=== PATIENT | male | born 1935 | race Caucasian/White ===

== ENCOUNTER 2021-01-19 11:44 | Observation (INO) | payer MEDICARE, BC, SELFPAY ==
[2021-01-19] VITALS (21 sets, daily range): BP systolic 94–138; BP diastolic 54–83; PULSE 56–151; RESP 14–20; TEMP 36.2–36.9; O2SAT 97–100; BMI 22.6
--- NOTE | ~2021-01-19 | XR_ITS ---
EXAMINATION: XR chest 2V EXAM DATE: 01/19/2021 12:41 INDICATION: Shortness of breath. TECHNIQUE: Frontal and lateral projections of the chest obtained and reviewed. Comparison is made to prior examination from 06/27/2012, 11/24/2010. FINDINGS: Linear left opacities appearance most consistent with scarring, appear unchanged compared t o 2010. No evidence of superimposed acute airspace disease. No pneumothorax or pleural effusion. Card iomediastinal silhouette is normal. There is aortic arteriosclerosis. Mild thoracic spondylosis. IMPRESSION: Chronic left basilar linear scarring. Reviewed, dictated and finalized at location A.
--- NOTE | 2021-01-19 11:57 | ED.CHESTPAIN ---
HPI - Chest Pain General Chief Complaint: Chest Pain Stated Complaint: CP, from Dr Epperson office Time Seen by Provider: 01/19/21 11:57 Source: patient Mode of arrival: ambulatory Limitations: no limitations History of Present Illness HPI narrative: Patient is an 85-year-old male with a history of hypertension who presents for evaluation of rapid heart rate. Patient was at a routine primary care physician appointment when he was noted to have a heart rate in the 150s. Patient does not have any history of atrial fibrillation. He is not anticoagulated. He denies any chest pain or palpitations. He just reports general malaise and feeling unwell over the past several days. He denies recent illness. No fever or chills. No other medication changes. He is reporting mild shortness of breath, no shortness of breath currently. Related Data Home Medications Medication Instructions Recorded Confirmed aspirin 81 mg PO DAILY 01/19/21 01/19/21 Allergies Allergy/AdvReac Type Severity Reaction Status Date / Time No Known Allergies Allergy Mild Verified 01/19/21 12:00 Review of Systems Review of Systems: Narrative: CONSTITUTIONAL: Denies fever, chills, or sweats. ENT: Denies rhinorrhea, congestion, sore throat, or otalgia. CARDIOVASCULAR: Denies chest pain, palpitations, or edema. RESPIRATORY: Denies cough, reports mild dyspnea, none currently GASTROINTESTINAL: Denies abdominal pain, nausea, vomiting, or diarrhea. GENITOURINARY: Denies dysuria or hematuria. SKIN: Denies rash MUSCULOSKELETAL: Denies back pain NEUROLOGIC: Denies headache PMFSH Past Medical History Medical History Chronic kidney disease, stage 3 Baseline creatinine ranges between 1.3 and 1.50. Diverticulosis (~02/2016) Noted on colonoscopy per Dr. Gonzalez Gastroesophageal reflux disease Hearing loss Hypertension Pure hypercholesterolemia Surgical History Surgical History History of left inguinal hernia repair Family History Family History Father Family history of lung cancer Social History Social History Social History: Surrogate decision maker: Code status: Smoking packs per day: 1 Smoking cigarettes per day: 20.0 Years smoked: 3 Smoking pack-years: 3.00 Smoking status: Former smoker Tobacco type: cigarettes Second hand tobacco smoke exposure: No Smoking end date: 10/16/1955 Alcohol intake: never Substance use: never Substance use type: does not use Additional living arrangements comments: The patient lives in [place]. Gender identity (if verbalized by the patient): Male Spiritual care concerns: No Exam Narrative: Exam Narrative: GENERAL: Awake, alert, conversant HEAD: Normocephalic, atraumatic. EYES: PERRLA and EOMI. ENT: Nares clear, no rhinorrhea or epistaxis. Mucous membranes moist. NECK: Supple. CHEST: No respiratory distress, breathing even and non labored HEART: Tachycardic rate, irregular rhythm ABDOMEN:Non distended, non tender EXTREMITIES: Normal range of motion. No edema. SKIN: Warm, dry, no rash. NEURO:No focal deficits. Alert and oriented x3 Course Vital Signs Vital signs: Vital Signs Temperature 36.9 C 01/19/21 11:50 Pulse Rate 151 H 01/19/21 11:50 Respiratory Rate 18 01/19/21 11:50 Blood Pressure 99/78 L 01/19/21 11:50 Pulse Oximetry 98 01/19/21 11:50 Temperature 36.2 C L 01/19/21 17:35 Pulse Rate 136 H 01/19/21 17:35 Respiratory Rate 14 01/19/21 17:35 Blood Pressure 109/62 01/19/21 17:35 Pulse Oximetry 100 01/19/21 17:35 MDM - Chest Pain MDM Narrative Medical decision making narrative: Patient presented for evaluation of rapid heart rate found at a primary care physician's office today. The time of assessment, patient is in
--- NOTE | 2021-01-19 12:01 | ECG_ITS ---
Measurements Intervals [place] Rate: 131 P: [place]: 0 QRS: -13 QRSD: 74 T: 39 QT: 290 QTc: 428 Interpretive Statements ATRIAL FIBRILLATION WITH RAPID VENTRICULAR RESPONSE EARLY PRECORDIAL R/S TRANSITION BASELINE ARTIFACT- I, III, AVR, AVL, AVF ABNORMAL ECG Electronically Signed On 01-19-2021 12:45:24 CDT by Jeevan Wheatley D.O.
[2021-01-19] MEDS: ASPIRIN 81 MG CHEWABLE TABLET 324 MG PO (12:16)
[2021-01-19 12:32] LABS: Basophils Absolute Auto 0.1 K/mm3 (0.0-0.1); Basophils Percent Auto 1.1 % (0.2-1.2); Eosinophils Absolute Auto 0.2 K/mm3 (0-0.3); Eosinophils Percent Auto 2.3 % (0-4.4); Hematocrit 45.3 % (42.0-52.0); Hemoglobin 15.3 g/dL (14.0-18.0); Immature Granulocyte Absolute 0.03 K/mm3 (0.00-0.031); Immature Granulocyte Percent A 0.3 % (0-0.5); Lymphocytes Percent Auto 28.3 % (18.3-44.2); Mean Corpuscular HGB Conc 33.8 g/dl (32-36); Mean Corpuscular Hemoglobin 30.3 pg (26-34); Mean Corpuscular Volume 89.7 fl (80-100); Mean Platelet Volume 9.8 fl (7.4-10.4); Monocytes Absolute Auto 0.7 K/mm3 (0.1-0.6); Monocytes Percent Auto 7.9 % (2.6-8.5); Neutrophils Absolute Auto 5.5 K/mm3 (1.3-6.7); Neutrophils Percent Auto 60.1 % (45.5-73.1); Platelet Count Result 230 k/mm3 (150-375); Red Blood Count 5.05 M/mm3 (4.6-6.20); Red Cell Distribution Width 13.1 % (11.5-14.5); White Blood Count 9.2 K/mm3 (4.5-10.0)
[2021-01-19 12:41] LABS: INR 0.9; Prothrombin Time 12.7 Seconds (11.1-14.7)
[2021-01-19 12:42] LABS: Partial Thromboplastin Time 29.7 SECONDS (22.3-36.8)
[2021-01-19 12:54] LABS: Anion Gap 4 mmol/L (8-16); Blood Urea Nitrogen 20 mg/dL (9-20); Calcium 8.5 mg/dL (8.4-10.2); Carbon Dioxide 31 mmol/L (22-30); Chloride 107 mmol/L (98-107); Estimated CRCL calculation 35 ml/min; Estimated Glomerular Filt Rate 45; Glucose 105 mg/dL (75-110); Potassium 3.9 mmol/L (3.4-5.0); Sodium 142 mmol/L (137-145); Troponin I < 0.012 ng/mL (0.000-0.034)
[2021-01-19] MEDS: METOPROLOL TARTRATE INJ 5 MG/5 ML VIAL IV PUSH (13:00)
[2021-01-19] MEDS: ENOXAPARIN 80 MG/0.8 ML SYRINGE 75 MG SUB-Q ×2 (13:15→21:35)
--- NOTE | 2021-01-19 15:07 | PC.NURSE ---
Pt given food tray.
--- NOTE | 2021-01-19 15:30 | PM.IMHP ---
H&P: HPI History of Present Illness Date/Time: 01/19/21 15:30 Chief Complaint: Atrial fibrillation. Narrative: This is an 85-year-old male with hypertension, hypercholesterolemia, GERD, and chronic kidney disease stage 3 who presented to the emergency department earlier today from Dr. Bauer office for evaluation after he was found to be in atrial fibrillation. He had a routine appointment with Dr. Bauer today and mentioned that he did not sleep well last night and was fatigued today with perhaps some mild shortness of breath. He was found to be in atrial fibrillation with rapid ventricular response, which is a new diagnosis for him, and he was directed to the emergency department. He received 5 milligrams of IV Lopressor and has has since been started on a Cardizem drip with some improvement in his rate although his blood pressures have been on the lower side. He has had similar symptoms in the past, quite sometime ago and on very rare occasions where he has felt ?punk? like this but has never been aware of or diagnosed with atrial fibrillation. He drinks at least 30 ounces of soda a day. Rare alcohol use. He denies symptoms of or concerns for sleep apnea. No exertional chest pain but occasional dyspnea on exertion. No history of thyroid disease. Review of Systems Review of Systems: Narrative: Twelve systems were reviewed with pertinent positives and negatives as per HPI. No fever, chills, or sweats. He denies recent cold and flu symptoms. No exposure to those positive for COVID-19. Denies nausea and vomiting. No diarrhea. No dysuria. Except as documented, all other systems were reviewed and are negative. [facility] Past Medical History Medical History Chronic kidney disease, stage 3 Baseline creatinine ranges between 1.3 and 1.50. Diverticulosis (~02/2016) Noted on colonoscopy per Dr. Gonzalez Gastroesophageal reflux disease Hearing loss Hypertension Pure hypercholesterolemia Surgical History Surgical History History of left inguinal hernia repair Family History Family History Father Family history of lung cancer Social History Social History (Updated 01/20/21 @ 01:12 by Eli Clifton PA-C) Social History: Surrogate decision maker: Estuardo Bustillos, child. Code status: Full code. Smoking packs per day: 1 Smoking cigarettes per day: 20.0 Years smoked: 3 Smoking pack-years: 3.00 Smoking status: Former smoker Tobacco type: cigarettes Second hand tobacco smoke exposure: No Smoking end date: 10/16/1956 Alcohol intake: never Substance use: never Substance use type: does not use Additional living arrangements comments: The patient is and lives in [place]. Originally from [facility]. Additional occupation/education comments: Retired. Gender identity (if verbalized by the patient): Male Spiritual care concerns: No Meds Home Medications and Allergies Home Medications Medication Instructions Recorded Confirmed Type metoprolol succinate 100 mg 100 mg PO DAILY #90 tablet 08/17/20 01/19/21 Rx tablet,extended release 24 hr omeprazole 40 mg capsule,delayed 40 mg PO DAILY #90 cap 08/18/20 01/19/21 Rx release valsartan 320 mg tablet 320 mg PO DAILY #90 tablet 09/14/20 01/19/21 Rx lovastatin 40 mg tablet 40 mg PO DAILY #30 tablet 12/03/20 01/19/21 Rx aspirin 81 mg PO DAILY 01/19/21 01/19/21 History Allergies Allergy/AdvReac Type Severity Reaction Status Date / Time No Known Allergies Allergy Mild Verified 01/19/21 12:00 Vital Signs Vital Signs - 24 hr 01/19/21 11:50 01/19/21 11:59 01/19/21 12:22 Temperature 98.4 F Pulse Rate 151 H 133 H 136 H Respiratory Rate 18 20 Blood Pressure 99/78 L 138/83 Pulse Oximetry 98 99 01/19/21 13:00 01/19/21 13:14 01/19/21 13:15
[2021-01-19 16:25] LABS: Troponin I < 0.012 ng/mL (0.000-0.034)
--- NOTE | 2021-01-19 16:45 | PC.NURSE ---
Spoke with Dr. Dawson regarding patients rate/rhythm change. Pt is currently rate [address] Dawson would like to continue IV drip at this time.
--- NOTE | 2021-01-19 17:44 | ADMGEN ---
This patient, Rai Bustillos, was admitted to IMU Room 200-01. Patient/family oriented to hospital policies and general routines including ID bracelet, bed and alarms, visiting hours, pain management, procedures, bathroom and other care routines, personal items, smoking policy, room service/diet, and visiting hours. Information on how to activate the Rapid Response Team has been discussed. Patient/Family are encouraged to report perceived risks to care and to ask questions if they do not understand what they are told or what they should do.
[2021-01-19 18:55] LABS: Troponin I < 0.012 ng/mL (0.000-0.034)
[2021-01-20] VITALS (10 sets, daily range): BP systolic 111–112; BP diastolic 58–65; PULSE 55–65; RESP 12–18; TEMP 36.1–36.5; O2SAT 97–99
[2021-01-20 05:22] LABS: Alanine Aminotransferase 10 U/L (4-50); Albumin Level 3.1 g/dL (3.5-5.1); Alkaline Phosphatase 87 U/L (38-126); Anion Gap 2 mmol/L (8-16); Aspartate Amino Transferase 22 U/L (17-59); Bilirubin,Total 0.7 mg/dL (0.2-1.3); Blood Urea Nitrogen 22 mg/dL (9-20); Calcium 7.9 mg/dL (8.4-10.2); Carbon Dioxide 32 mmol/L (22-30); Chloride 108 mmol/L (98-107); Estimated CRCL calculation 39 ml/min; Estimated Glomerular Filt Rate 53; Glucose 87 mg/dL (75-110); Magnesium 1.7 mg/dL (1.6-2.3); Potassium 4.1 mmol/L (3.4-5.0); Sodium 142 mmol/L (137-145)
--- NOTE | 2021-01-20 05:36 | PCRCNOTE ---
Patient refused apnea link last night (01/19/21) Procedure was thoroughly explained to pt in which he proceeded to decline.
[2021-01-20] MEDS: ASPIRIN 81 MG CHEWABLE TABLET PO (08:41)
[2021-01-20] MEDS: LOVASTATIN 20 MG TABLET 40 MG PO (08:41)
[2021-01-20] MEDS: PANTOPRAZOLE 40 MG TABLET PO (08:41)
[2021-01-20] MEDS: METOPROLOL SUCCINATE EXT REL 100 MG TABCR PO (08:41)
[2021-01-20] MEDS: ENOXAPARIN 80 MG/0.8 ML SYRINGE 75 MG SUB-Q (08:41)
--- NOTE | 2021-01-20 11:28 | PM.CNCAR ---
Assessment and Plan Assessment and plan (1) Atrial fibrillation with RVR: Code(s): I48.91 - Unspecified atrial fibrillation Status: Acute Assessment and Plan: Symptomatic with reduced energy, minimal shortness of breath but no chest pain or palpitations. Converted to sinus rhythm and maintained thus far. Symptoms resolved. Increase Toprol XL to 125 mg daily. Follow up with Dr. Deshpande as outpatient 4 weeks. CHADS2 Vasc score 3. Systemic anticoagulation advised. Discussed risk versus benefit of embolic stroke risk reduction with atrial fibrillation and associated pathology as well as bleeding risk. Bleeding risks include GI, , cerebral hemorrhage under local trauma related issues. Patient verbalized understanding and agreed with plan of care. All questions answered to his satisfaction. If head injury, falls or bleeding present to ER immediately. Patient understood this concern. Avoid NSAIDs due to bleeding risk. Discontinue aspirin at discharge. Patient stable for discharge home to follow up as scheduled as an outpatient. Will initiate Xarelto 15 mg at bedtime renally dosed. Continue additional medical therapy with these changes noted. (2) Hypertension: Code(s): I10 - Essential (primary) hypertension Status: Acute Assessment and Plan: Stable, no acute issues. Continue current medical therapy. (3) Gastro-esophageal reflux disease without esophagitis: Code(s): K21.9 - Gastro-esophageal reflux disease without esophagitis Status: Acute Assessment and Plan: Stable, no acute issues. No direct contraindications. (4) Chronic kidney disease, stage 3: Code(s): N18.30 - Chronic kidney disease, stage 3 unspecified Status: Acute Assessment and Plan: Stable. Xarelto dosing as above 15 mg at bedtime. History of Present Illness History of Present Illness Consult date/time: date of service: 01/20/21 11:29 Cardiology consultation at the request of MAT Philippe for our opinion regarding atrial fibrillation with RVR. Requesting physician: Eli Clifton PA-C Consult reason: atrial fibrillation Reason For Visit: A fib with RVR Narrative: With a history of hypertension, dyslipidemia, GERD, chronic kidney disease stage [address] Deshpande as an outpatient found to be in new onset atrial fibrillation with rapid ventricular response after presenting to his primary care physician's office for routine visit. He does not he has been feeling punky that day but otherwise denies palpitations, chest pain or dizziness. He admitted to feeling perhaps very mildly short of breath and did not sleep well the night before. In the emergency department he received IV metoprolol with started on a Cardizem drip with eventual conversion to sinus rhythm. This was discontinued and he has been maintained on his home Toprol XL 100 mg daily. He has no complaints and feels notably improved this morning. Troponins negative serially. 2D echocardiogram fairly unremarkable with normal LV function and no significant valve pathology. Patient denies lower extremity edema, orthopnea or PND. He denies new or recent limitations, falls, head injury, fevers, chills, recent illnesses or sick contacts. Medications unchanged. Review of Systems Review of Systems: All systems reviewed & are unremarkable except as noted in HPI and below Constitutional: Constitutional: Reports as per HPI, Reports no additional constitutional complaints, Reports fatigue and Reports weakness Eyes: Eyes: Reports as per HPI and Reports no additional eye complaints ENT: Reports system reviewed and no additional complaints, except as documented and Reports as per HPI Cardiovascular: Cardiovascular: Reports as per HPI, Reports no additional cardiovascular complaints, Denies chest pain, Denies diaphoresis, Reports lightheadedness and Denies palpitations Respiratory: Respiratory: Reports as per HPI, Reports no carlos
--- NOTE | 2021-01-20 13:14 | PM.IMPN ---
Progress Note: A&P Assessment and Plan (1) Atrial fibrillation with RVR: Code(s): I48.91 - Unspecified atrial fibrillation Status: Acute Assessment and Plan: This is a new diagnosis for the patient, uncertain as to how long he has been in this rhythm. Currently on a Cardizem drip with improvement in rates.-> discontinued CHADS2 Vasc score is 2, will start Lovenox 1 milligram/kilogram b.i.d. for now. He seems are uncertain about anticoagulation. Echocardiogram has been ordered. TSH normal. 01/20/21 Patient was without complaint during my interview. Pending further evaluation of his new onset atrial fibrillation. Currently heart rate is the 60s. Anticipate discharge home after completion of workup. cont current care (2) Hypertension: Code(s): I10 - Essential (primary) hypertension Status: Acute Assessment and Plan: Blood pressures reviewed and they have been on the lower side of normal on a Cardizem drip. Hold valsartan while on Cardizem drip. Continue to monitor blood pressures closely. (3) Chronic kidney disease, stage 3: Code(s): N18.30 - Chronic kidney disease, stage 3 unspecified Status: Acute Assessment and Plan: Creatinine is stable on review of previous labs. (4) Pure hypercholesterolemia: Code(s): E78.00 - Pure hypercholesterolemia, unspecified Status: Acute Assessment and Plan: Continue statin and check LFTs. (5) Gastroesophageal reflux disease: Code(s): K21.9 - Gastro-esophageal reflux disease without esophagitis Status: Acute Assessment and Plan: Continue PPI. Subjective Date/time seen: 01/20/21 13:14 Patient has no complaints at time of interview his heart rate is in the 60s. He is requesting to go home. Patient advised that we should continue further workup is newly diagnosed atrial fibrillation to ensure there are no correctable causes. Echocardiogram pending will defer to cardiology elective stay and timing of discharge. Exam Narrative: Exam Narrative: General: no distress. Cooperative to interview, on room air HEENT: Wearing glasses. PERRL, EOMI. Sclerae anicteric. Oral mucosa moist. Oropharynx clear. Neck: Supple. No JVD. Respiratory: Lungs are clear to auscultation bilaterally. Cardiovascular: Irregular rate and rhythm with S1-S2. rate controlled AFib. Gastrointestinal: Abdomen is soft, nontender, and nondistended with positive bowel sounds. Skin: Warm and dry. No rash or lesions on limited exam. Extremities: No cyanosis, clubbing, or edema. Radial and pedal pulses intact. Neurological: AAOx3 Cranial nerves 2-12 are grossly intact. No gross focal deficits to casual conversation. Psychiatric: Pleasant and cooperative with normal mood and affect. Judgment and insight intact. Objective Data Vital Signs Vital Signs: Vital Signs - 24 hr 01/19/21 13:15 01/19/21 13:45 01/19/21 14:15 Temperature Pulse Rate 130 H 123 H 114 H Respiratory Rate 18 20 Blood Pressure 114/80 95/82 L 98/61 L Pulse Oximetry 99 99 01/19/21 14:45 01/19/21 15:15 01/19/21 16:08 Temperature Pulse Rate 115 H 124 H 119 H Respiratory Rate 16 16 16 Blood Pressure 96/58 L 104/73 98/54 L Pulse Oximetry 97 98 97 01/19/21 16:42 01/19/21 16:45 01/19/21 17:20 Temperature Pulse Rate 60 59 L 61 Respiratory Rate 18 16 20 Blood Pressure 94/54 L 94/54 L 98/58 L Pulse Oximetry 100 100 100 01/19/21 17:35 01/19/21 18:00 01/19/21 19:50 Temperature 97.1 F L 97.6 F Pulse Rate 136 H 58 L 56 L Respiratory Rate 14 18 Blood Pressure 109/62 94/57 L Pulse Oximetry 100 99 01/19/21 20:00 01/19/21 22:00 01/19/21 23:41 Temperature 97.1 F L Pulse Rate 59 L 59 L 64 Respiratory Rate 20 Blood Pressure 111/59 L Pulse Oximetry 99 01/20/21 00:00 01/20/21 02:00 01/20/21 04:00 Temperature 97.0 F L Pulse Rate 55 L 59 L 61 Respiratory Rate 18 Blood Pressure 112/60 Pul
--- NOTE | 2021-01-20 14:18 | PM.DS ---
DS: Admitting Diagnosis Admitting Diagnosis Admitting Diagnosis: new onset afib htn [id number] Hld DS: Discharge Diagnosis Discharge Diagnosis (1) Atrial fibrillation with RVR: Code(s): I48.91 - Unspecified atrial fibrillation Status: Acute (2) Hypertension: Code(s): I10 - Essential (primary) hypertension Status: Acute (3) Pure hypercholesterolemia: Code(s): E78.00 - Pure hypercholesterolemia, unspecified Status: Acute (4) Chronic kidney disease, stage 3: Code(s): N18.30 - Chronic kidney disease, stage 3 unspecified Status: Acute (5) Gastroesophageal reflux disease: Code(s): K21.9 - Gastro-esophageal reflux disease without esophagitis Status: Acute DS: Summary Hospital Course Reason for hospitalization: AFib RVR Hospital Course: 85-year-old male with hypertension hyperlipidemia and CKD 3 admitted in new onset atrial fibrillation. He was treated with Cardizem drip and transition to p.o. metoprolol. Home Alan Vasc score to patient was discharged home on Xarelto. Cardiology was consulted during his hospitalization recommendations appreciated. Status at Discharge Functional status at discharge: independent ambulation Time Spent with Patient Time attestation: Total time spent providing and/or coordinating discharge services: 40min Time spent: Greater than 30 minutes DS: Data Data Completed and Pending Labs on day of discharge: Labs from last 24 hours 01/20/21 01/19/21 01/19/21 03:56 18:14 15:56 Sodium 142 Potassium 4.1 Chloride 108 H Carbon Dioxide 32 H Anion Gap 2 L BUN 22 H Creatinine 1.30 Estim Creat Clear Calc 39 Estimated GFR 53 L Glucose 87 Calcium 7.9 L Magnesium 1.7 Total Bilirubin 0.7 AST 22 ALT 10 Alkaline Phosphatase 87 Troponin I < 0.012 < 0.012 Total Protein 6.0 L Albumin 3.1 L Discharge Plan Discharge Attending physician on discharge: Erika Patiño Consulting providers: Varinder Anders Discharging Clinician: Erika Patiño Anticipated Discharge Date/Time: 01/20/21 14:08 Patient Disposition: Home, Self-Care Activity: as tolerated Diet: as tolerated Discharge Instructions: Follow-up with the [facility] office [address] appointment date and time, provided in 4 weeks. Please arrive 20 minutes prior to your appointment. Bring photo ID, insurance cards, and current medication list. If new to the practice, also bring completed new patient form. Patient Instructions: Antibiotic Form Stand Alone Forms: General Discharge Information Follow-up/Referrals: Varinder Anders MD [Physician] - Keep Reg. Scheduled Appt. (Pt will follow up with Dr. Deshpande in the office.) Verito Deshpande MD [Physician] - 4 Weeks Discharge Medications: New metoprolol succinate [Toprol XL] 100 mg Tablet Extended Release 24 Hr 100 mg PO DAILY Qty: 30 RF: 3 Xarelto 15 mg Tablet 15 mg PO DAILY@1700 Qty: 30 RF: 3 Continued metoprolol succinate 100 mg tablet extended release 24 hr 100 mg PO DAILY Qty: 90 RF: 3 omeprazole 40 mg capsule,delayed release(DR/EC) 40 mg PO DAILY Qty: 90 RF: 3 valsartan 320 mg tablet 320 mg PO DAILY Qty: 90 RF: 1 lovastatin 40 mg tablet 40 mg PO DAILY Qty: 30 RF: 5 Discontinued aspirin 81 mg Tablet 81 mg PO DAILY RF: 0 Date of admission: 01/19/21 12:49 Primary Care Provider: Israel Bauer Admitting Provider: Cira Main Attending physician on admission: Cira Main Condition: Stable Quality VTE Prophylaxis VTE prophylaxis: pharmacologic ordered
--- NOTE | 2021-01-20 16:19 | ECHO_ITS ---
Patient Info Name: Rai Bustillos Age: 85 years : 1935 Gender: Male Ht: 72 in Wt: 166 lbs BSA: 1.95 m2 HR: 61 bpm BP: 112 / 60 mmHg Heart Rhythm: Sinus Rhythm Technical Quality: Good Exam Date: 01/20/2021 7:57 AM Exam Location: [facility] Patient Status: Inpatient Admit Date: 01/19/2021 Staff Ordering Physician: Eli Clifton PA-C Grizzly Worker: Tray Galarza, ADOLPH, RT Attending Provider: Cira Main MD Referring Physician: Elodia CARDOZA; Exam Type: CA echo doppler color flow Study Info Indications I48.1 - Persistent atrial fibrillation I10 - Essential (primary) hypertension Complete two-dimensional, color flow and Doppler transthoracic echocardiogram is performed. Strain analysis performed. Summary 1. Complete two-dimensional, color flow and Doppler transthoracic echocardiogram is performed. 2. Left ventricular systolic function is normal, estimated at 55%. 3. There is mildly increased left ventricular wall thickness. 4. The left ventricular diastolic function is grade I diastolic dysfunction. 5. Left atrial chamber dimension is moderately enlarged. 6. Right atrial chamber dimension is moderately enlarged. 7. There is no aortic valve stenosis. 8. There is mild mitral valve regurgitation. 9. There is mild tricuspid valve regurgitation. 10. Mild pulmonary hypertension, estimated pulmonary arterial systolic pressure is 41 mmHg. Left Ventricle Left ventricular chamber dimension is normal. Left ventricular systolic function is normal, estimated at 55%. There is mildly increased left ventricular wall thickness. The left ventricular diastolic function is grade I diastolic dysfunction. Global longitudinal strain is mildly elevated at -15 %. Right Ventricle Right ventricular chamber dimension is normal. Right ventricular systolic function is normal. Left Atria Left atrial chamber dimension is moderately enlarged. Right Atria Right atrial chamber dimension is moderately enlarged. Aortic Valve The aortic valve is trileaflet. There is mild aortic valve sclerosis. There is no aortic valve stenosis. There is mild aortic valve regurgitation. Pulmonic Valve The pulmonic valve is not well visualized. Mitral Valve The mitral valve has thickened leaflets. There is mild mitral valve regurgitation. The mitral valve annulus is mildly calcified. Tricuspid Valve The tricuspid valve leaflets are normal. There is mild tricuspid valve regurgitation. Mild pulmonary hypertension, estimated pulmonary arterial systolic pressure is 41 mmHg. Pericardium/Pleural The pericardium appears normal. There is no pericardial effusion. Inferior Vena Cava Normal inferior vena cava with no collapse upon inspiration consistent with elevated right atrial pressure, 10 mmHg. Aorta The aortic root size at the sinus of Valsalva is normal. There is mild aortic atherosclerosis. Left Ventricular Outflow Tract Name Value Normal LVOT 2D LVOT Diameter 2.1 cm LVOT Doppler LVOT Peak Gradient 3 mmHg LVOT Mean Gradient 2 mmHg
== END 2021-01-20 15:03 | disposition home or self-care (01) ==
LOC: ANHED 14:14 → ANHIMU 01-20 14:16
PROVIDERS: Physician Assistant; Admitting Provider Family Medicine; Emergency Provider Emergency Medicine; PCP Family Medicine; Visit Provider Hospitalist
DX: I48.91 Unspecified atrial fibrillation (principal); I12.9 Hypertensive chronic kidney disease with stage 1 through stage 4 chronic kidney disease, or unspecified chronic kidney disease; N18.30 Chronic kidney disease, stage 3 unspecified; E78.00 Pure hypercholesterolemia, unspecified; K21.9 Gastro-esophageal reflux disease without esophagitis; I34.0 Nonrheumatic mitral (valve) insufficiency; I36.1 Nonrheumatic tricuspid (valve) insufficiency; I27.20 Pulmonary hypertension, unspecified; Z79.82 Long term (current) use of aspirin; Z87.891 Personal history of nicotine dependence
CPT/HCPCS: 36415; 71046; 80048; 80053; 83735; 84443; 84484; 85025; 85610; 85730; 93005; 93306; 96365; 96366; 96372; 96375; 99285; A9270; G0378; J1650

== ENCOUNTER 2021-02-20 11:08 | Outpatient (CLI) | payer MEDICARE, BC, SELFPAY ==
--- NOTE | ~2021-02-20 | CT_ITS ---
EXAMINATION: CT abdomen pelvis wo/w con DATE: 02/20/2021 12:07 INDICATION: Gross hematuria TECHNIQUE: Computed tomography (CT) of the abdomen and pelvis was performed without and with 130 cc O mnipaque 350 intravenous contrast. The dose-length product was 889.46 mGy-cm. Automated exposure cont rol and iterative reconstruction technique were employed. COMPARISON: None. FINDINGS: There is interlobular septal thickening in the lower lobes and lingula, likely chronic fibr osis. Heart size normal. There is atherosclerosis of the aorta and coronary arteries. There is 7.3 cm liver cyst. The spleen, pancreas, adrenal glands are unremarkable. There is bilateral renal atrophy. There are parapelvic cysts. There is a large stone in the right renal pelvis measuring 1.7 cm. There is mild induration of the parapelvic fat, possibly due to pyelosinus extravasation or infection. The re is gas in the bladder lumen. Bladder wall mildly thickened. Prostate gland is enlarged. Colonic diverticulosis no acute osseous abnormality. Moderate lumbar spondylosis. Nonobstructive chel l gas pattern. No free air or free fluid. Tiny fat-containing umbilical hernia. IMPRESSION: 1. Right renal stone measuring 1.7 cm. Mild induration of the parapelvic fat which may be secondary t o pyelosinus extravasation or infection. 2: Coarse interlobular septal thickening of the lingula and lower lobes, likely chronic fibrosis. 3: Mild bladder wall thickening which may be due to bladder outlet obstruction or cystitis. Small am ount of intraluminal gas in the bladder, likely from recent instrumentation. Correlate clinically. Reviewed, dictated and finalized at location A. IMPRESSION: 1. Right renal stone measuring 1.7 cm. Mild induration of the parapelvic fat wh ich may be secondary to pyelosinus extravasation or infection. 2: Coarse interlobular septal thickening of the lingula and lower lobes, likely chronic fibrosis. 3: Mild bladder wall thickening which may be due to bladder outlet obstruction or cystitis. Small amount of intraluminal gas in the bladder, likely from rece nt instrumentation. Correlate clinically.
--- NOTE | ~2021-02-20 | XR_ITS ---
XR abdomen/kub 1V 02/20/2021 11:26 Indication: Gross hematuria Procedure: KUB Comparison: CT dated 02/20/2021 Findings: There is a calcification in the right upper abdomen measuring 2.2 cm, consistent with renal stone. Bowel gas pattern is nonobstructive. There is atherosclerosis. Moderate lumbar spondylosis. Impression: 1: Right renal stone measuring 2.2 cm. Reviewed, dictated and finalized at location A. Impression: 1: Right renal stone measuring 2.2 cm.
[2021-02-20 11:41] LABS: Estimated Glomerular Filt Rate 44
== END 2021-02-20 11:09 | disposition home or self-care (01) ==
LOC: ANHIMG 11:09
PROVIDERS: PCP Family Medicine; Visit Provider Nurse Practitioner Adult Health
DX: R31.0 Gross hematuria (principal); N20.0 Calculus of kidney
CPT/HCPCS: 74018; 74178; Q9967

== ENCOUNTER 2021-02-26 12:12 | Outpatient (CLI) | payer MEDICARE, BC, SELFPAY ==
--- NOTE | 2021-02-26 11:30 | ECG_ITS ---
Measurements Intervals [place] Rate: 57 P: 3 NE: 164 QRS: -10 QRSD: 82 T: 30 QT: 424 QTc: 416 Interpretive Statements SINUS BRADYCARDIA BASELINE ARTIFACT- I, II, III, AVR, AVL, AVF, V4-V6 BORDERLINE ECG Electronically Signed On 02-26-2021 17:20:35 CDT by Jeevan Wheatley D.O.
[2021-02-26 12:47] LABS: Prothrombin Time 13.4 Seconds (11.1-14.7)
[2021-02-26 12:48] LABS: Partial Thromboplastin Time 28.9 SECONDS (22.3-36.8)
== END 2021-02-26 12:13 | disposition home or self-care (01) ==
LOC: ANHSURGERY 12:17
PROVIDERS: PCP Family Medicine; Visit Provider Urology
DX: I48.91 Unspecified atrial fibrillation (principal); N20.0 Calculus of kidney; Z01.818 Encounter for other preprocedural examination; R94.31 Abnormal electrocardiogram [ECG] [EKG]
CPT/HCPCS: 36415; 85610; 85730; 87086; 93005

== ENCOUNTER → 2021-03-02 04:43 | Outpatient (CLI) | payer MEDICARE, BC, SELFPAY ==
[2021-03-02 20:06] LABS: SARS-CoV-2 RNA PCR Negative
== END ==
PROVIDERS: Physician Assistant; PCP Family Medicine; Visit Provider Urology
DX: Z01.812 Encounter for preprocedural laboratory examination (principal); Z20.822 Contact with and (suspected) exposure to COVID-19
CPT/HCPCS: C9803; U0003; U0005

== ENCOUNTER 2021-03-07 10:08 | Observation (INO) | payer MEDICARE, BC, SELFPAY ==
[2021-02-23 09:23] VITALS: BMI 23.1
--- NOTE | 2021-03-04 12:31 | WPDANESEPPF ---
Anes - Initial Pre Proc Eval Procedure: Operation Date: 03/05/21 11:30 Proposed Procedures p Right Renal Extracorporeal Shock Wave Lithotripsy, - Amor Gonzalez MD s Cystoscopy, Right Stent Placement - Amor Gonzalez MD Date/Time: 03/04/21 12:31 Surgeon: Amor Gonzalez MD Pre Op Diagnosis: right renal stone Patient Data Age: 86 Gender: M Height: 1.83 m Weight: 77.27 kg Allergies Allergy/AdvReac Type Severity Reaction Status Date / Time No Known Allergies Allergy Mild Verified 03/05/21 09:58 Home Medications Medication Instructions Recorded Confirmed Type lovastatin 40 mg tablet 40 mg PO DAILY #30 tablet 12/03/20 03/05/21 Rx aspirin [Aspir-81] 81 mg PO DAILY 02/23/21 03/05/21 History metoprolol succinate 200 mg PO HS 02/23/21 03/05/21 History omeprazole 40 mg PO HS 02/23/21 03/05/21 History valsartan 320 mg PO HS 02/23/21 03/05/21 History ICaps AREDS2 1 cap PO DAILY 03/05/21 03/05/21 History Patient hx anesthesia problems: none Family hx anesthesia problems: none [facility] Past Medical History Medical History (Updated 03/04/21 @ 12:33 by Miguel Woodson DO) A-fib Chronic kidney disease, stage 3 Baseline creatinine ranges between 1.3 and 1.50. Diverticulosis (~02/2016) Noted on colonoscopy per Dr. Gonzalez Gastroesophageal reflux disease Hearing loss Hypertension Pure hypercholesterolemia Surgical History Surgical History History of left inguinal hernia repair Family History Family History Father Family history of lung cancer Social History Social History Social History: Surrogate decision maker: Estuardo Bustillos, child. Code status: Full code. Smoking packs per day: 1 Smoking cigarettes per day: 20.0 Years smoked: 3 Smoking pack-years: 3.00 Smoking status: Former smoker Tobacco type: cigarettes Second hand tobacco smoke exposure: No Smoking end date: 10/16/1955 Alcohol intake: current Drinks per week: 2 Substance use: never Substance use type: does not use Living arrangements: alone Additional living arrangements comments: The patient is and lives in [place]. Originally from [facility]. Additional occupation/education comments: Retired. Gender identity (if verbalized by the patient): Male Spiritual care concerns: No Anes - Eval Final PreProcedure Day of Procedure 03/04/21 12:31 Patient weight: normal Heart: regular rate and rhythm Lungs: clear to auscultation and normal air movement Airway: Mallampati scale class II Neurological: alert and oriented Last oral intake: >/= 8 hours ASA classification: III Emergent: no Anesthetic plan: proceed Anesthesia type and monitoring: general LMA and standard monitoring Informed Consent: The patient's anesthetic plan and its attendant risks and benefits were discussed with the patient/family/POA. Questions were solicited and answers provided to the satisfaction of the patient/family/POA.
[2021-03-05] VITALS (20 sets, daily range): BP systolic 105–141; BP diastolic 65–108; PULSE 62–140; RESP 12–20; TEMP 35.7–36.6; O2SAT 97–100
--- NOTE | 2021-03-05 07:14 | WPDHPUPDATE1 ---
History and Physical Update Update Date/Time: 03/05/21 07:14 History and Physical has been reviewed, including an updated exam of the patient. There are NO changes in the patient's condition. Risks, benefits, and alternatives have been discussed and questions answered. Patient agrees to proceed with procedure.
[2021-03-05] MEDS: LACTATED RINGERS 1,000 ML 30 ML IV CONT (10:45)
[2021-03-05] MEDS: ceFAZolin 2 GM/D5W 50 ML 2 GM/50 ML BAG IVPB (11:59)
--- NOTE | 2021-03-05 12:16 | P.OP_ITS ---
Procedure Note - Detailed Date of procedure: 03/05/21 Pre-op diagnosis: right renal stone Post-op diagnosis: same Procedure performed: Cystoscopy, right ureteral stent placement Right ESWL Description of procedure: The patient was brought to the operative suite where he was placed in the supine position on the Dornier lithotripter table. Flexible cystoscopy was undertaken with a 16F flexible cystoscopy. There were no urethral strictures. The prostatic urethra estimated length was 2.0cm. There was mild obstruction of the prostatic urethra with no median lobe enlargement. The bladder mucosa was normal and there was a single, orthotopic ureteral orifice bilaterally. A 0.035 glidewire was advanced into the right renal pelvis under fluoroscopy. A 4.8F J-J ureteral stent was positioned with the proximal coil in the renal pelvis and the distal coil in the bladder. The patient was then repositioned in the supine position with the focal point of the lithotriptor on a 19mm right renal calculus. A total of 2500 shocks were deliv ered at a power setting of 4. There appeared to be good fragmentation of the stone. The patient tolerated the procedure well and was taken to the recovery room in good condition. Anesthesia: GLMA Surgeon: Amor Gonzalez MD Estimated blood loss (mL): 0 Drains: No Packing: No Pathology: none sent Complications: No immediate complications Condition: stable Disposition: PACU
--- NOTE | 2021-03-05 13:07 | SUR.PHASEI ---
blanca barker speaking with dr. hawthorne in regards to pt's afib
--- NOTE | 2021-03-05 13:09 | ECG_ITS ---
Measurements Intervals [place] Rate: 122 P: MD: 0 QRS: -12 QRSD: 86 T: 31 QT: 313 QTc: 446 Interpretive Statements ATRIAL FIBRILLATION WITH RAPID VENTRICULAR RESPONSE BASELINE ARTIFACT- II, III, AVF ABNORMAL ECG Electronically Signed On 03-05-2021 13:30:14 CDT by Jeevan Wheatley D.O.
--- NOTE | 2021-03-05 13:32 | SUR.PHASEI ---
[id number] - dr. hawthorne on phone with dr. abdi. dr. abdi to see patient in recovery room
--- NOTE | 2021-03-05 14:01 | SUR.PHASEI ---
1355 - dr. logan at bedside speaking with pt. dr. hawthorne and pt
--- NOTE | 2021-03-05 14:12 | PM.CNCAR ---
Assessment and Plan Additional Plan This is an 86-year-old man with paroxysmal atrial fibrillation who has a past been higher dose metoprolol and had been on Xarelto for systemic anticoagulation which was discontinued because of gross hematuria. The likely source of this was his nephrolithiasis. The patient arrives here today in sinus rhythm and during surgery reverted back to atrial fib with RVR. Despite this he is hemodynamically stable and essentially asymptomatic of his arrhythmia. I am going to recommend advancing his antiarrhythmic regimen to sotalol at a dosage of [address] q[address] of his metoprolol. The remainder of his medical regimen should be continued. Hopefully he will convert to sinus rhythm fairly promptly and we will not have to immediately anticoagulate him. If he persists in atrial fib then anticoagulation will need to be resumed despite his history of hematuria. Both I and Dr. Gonzalez are concerned that systemic anticoagulation at this moment immediately after lithotripsy with probably result in significant hematuria. Gennaro Acuña MD [facility] History of Present Illness History of Present Illness Consult date/time: 03/05/21 14:12 Consult reason: atrial fibrillation Reason For Visit: right renal stone Narrative: This is an 86-year-old man of seeing at the request of the hospitalist in the postanesthesia care unit at the hospital as he is recovering from lithotripsy for a renal stone. Apparently he came into the hospital as an outpatient today for this procedure and during the operation he converted from sinus rhythm to atrial fib with RVR with which he was hemodynamically stable. He is currently in the postanesthesia care unit and is recovering uneventfully other than he is still in atrial fib with heart rates between 120-150 beats per minute as I discussed this with him. He is not particularly aware of his tachyarrhythmia and does not have any complaints at this time. As it happens he was seen by our practice at the beginning of January of this year in the hospital for the same thing. Apparently he went to his primary care physician for a routinely scheduled appointment on that day and was noted to be in AFib with RVR. At that time he was sent to the emergency department for treatment. The chart indicates he was seen by Dr. Anders of our practice and was treated with IV diltiazem which converted him back to sinus rhythm. He normally takes metoprolol at a dosage of 100 mg per day for his hypertension this was increased to 125 mg and he was allowed to go home. He was systemically anticoagulated with Xarelto afterwards he began to complain of gross hematuria apparently after this he was found to have nephrolithiasis. The Xarelto was discontinued and follow-up in our office was scheduled but I do not believe had occurred yet. His evaluation last month in the hospital included an echocardiogram that demonstrated normal left ventricular systolic function some atrial dilatation and no significant valvular disease. He is not known to have coronary disease or previous myocardial infarction. He has longstanding hypertension which is presumably the substrate/etiology for his atrial fib. Review of Systems Constitutional: Constitutional: Reports no additional constitutional complaints Eyes: Eyes: Reports no additional eye complaints ENT: Reports system reviewed and no additional complaints, except as documented Cardiovascular: Cardiovascular: Reports no additional cardiovascular complaints Respiratory: Respiratory: Reports no additional respiratory complaints Gastrointestinal: Gastrointestinal: Reports no additional gastrointestinal complaints Genitourinary: Genitourinary: Reports hematuria Musculoskeletal: Musculoskeletal: Reports no additional musculoskeletal complaints Integumentary/Breasts: Skin/Breast: Reports system reviewed and no additional complaints, except as docu Neurologic: Reports system reviewed and no
[2021-03-05] MEDS: SOTALOL HCL 80 MG TABLET PO ×2 (14:56→20:51)
--- NOTE | 2021-03-05 15:20 | SUR.PHASEI ---
1515 - pt's daughter Mary has been updated 3 times on pt's status during pt's stay in recovery
--- NOTE | 2021-03-05 18:22 | PM.IMHP ---
H&P: HPI History of Present Illness Date/Time: 03/05/21 18:22 this is a 86-year-old male patient who has a past medical history of atrial fibrillation. The patient was last admitted here on 01/19/2021 with the patient was found to be in AFib atrial fibrillation he was given IV Lopressor and started on a Cardizem drip. He converted back to sinus rhythm at that time. The patient was placed on metoprolol and Xarelto. The patient soon developed some hematuria. He thought that maybe it was the Xarelto causing the hematuria so he stopped taking it and was to follow-up with cardiology. However on 02/21/2020 the patient was found to have a right renal stone measuring 1.7 cm. the patient was taken to OR per for cystoscopy and a right ureteral stent placement. The patient went back into atrial fibrillation. Dr. Acuña saw the patient in recovery and recommended that the patient be placed on sotalol. His heart rate is still in the 130s. Patient is not having any chest pain or palpitations. The patient is requesting to go home at this point. Per Cardiology note it stated that if he persistent atrial fibrillation and anticoagulation will need to be resumed despite the history of hematuria. There was concern for anticoagulation at this time due to his procedure today. The patient was admitted to same-day surgery per urology and the hospitalist was consulted on the date of service of 03/05/2021. Review of Systems Review of Systems: All systems reviewed & are unremarkable except as noted in HPI and below Constitutional: Constitutional: Reports as per HPI and Reports no additional constitutional complaints Eyes: Eyes: Reports as per HPI and Reports no additional eye complaints ENT: Reports system reviewed and no additional complaints, except as documented and Reports Normal hearing present Cardiovascular: Cardiovascular: Reports no additional cardiovascular complaints Respiratory: Respiratory: Reports no additional respiratory complaints and Reports no additional respiratory complaints Gastrointestinal: Gastrointestinal: Reports as per HPI and Reports no additional gastrointestinal complaints Musculoskeletal: Musculoskeletal: Reports no additional musculoskeletal complaints Integumentary/Breasts: Skin/Breast: Reports system reviewed and no additional complaints, except as docu and Reports as per HPI Neurologic: Reports system reviewed and no additional complaints, except as documented, Reports as per HPI and Reports Normal hearing present Psychiatric: Psychiatric: Reports no additional psychiatric complaints and Reports as per HPI Endocrine: Endocrine: Reports no additional endocrine complaints Hematologic/Lymphatic: Hematologic/Lymphatic: Reports no additional hematologic/lymphatic complaints Allergic/Immunologic: Allergic/Immunologic: Reports no additional allergic/immunologic complaints [facility] Past Medical History Medical History A-fib Chronic kidney disease, stage 3 Baseline creatinine ranges between 1.3 and 1.50. Diverticulosis (~02/2016) Noted on colonoscopy per Dr. Gonzalez Gastroesophageal reflux disease Hearing loss Hypertension Pure hypercholesterolemia Surgical History Surgical History (Updated 03/05/21 @ 18:29 by Sabrina Del Toro NP) History of left inguinal hernia repair History of renal stent S/P cystoscopy Family History Family History Father Family history of lung cancer Social History Social History (Updated 03/05/21 @ 18:31 by Sabrina Del Toro NP) Social History: Surrogate decision maker: Estuardo Bustillos, child. Code status: Full code. The patient has 4 children. 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 No alcohol or illicit drugs. Smoking packs per day: 1 Smoking cigarettes per day: 20.0 Years smoked: 3 Smoking pack-years: 3.00 Smoking status: Former smoker Tobacc
--- NOTE | 2021-03-05 18:41 | PM.IMCN ---
Assessment and Plan Assessment and plan (1) Atrial fibrillation with RVR: Code(s): I48.91 - Unspecified atrial fibrillation Status: Acute Assessment and Plan: The patient was seen by Cardiology and recovery. His medication is going to be changed from metoprolol to sotalol. No anticoagulation today due to his procedure. Cardiology has been consulted. (2) Chronic kidney disease, stage 3: Code(s): N18.30 - Chronic kidney disease, stage 3 unspecified Status: Acute Assessment and Plan: Patient appears to be at his baseline with a BUN and creatinine. However GFR appears to be the same as well. (3) Hypertension: Code(s): I10 - Essential (primary) hypertension Status: Acute Assessment and Plan: The patient's metoprolol will be changed to sotalol. On valsartan as well. (4) Right renal stone: Code(s): N20.0 - Calculus of kidney Status: Acute Assessment and Plan: Please see operative note for a cystoscopy with a right renal stent for 1.9 cm stone seen on the abdominal x-ray today. Further care per Urology. (5) Pure hypercholesterolemia: Code(s): E78.00 - Pure hypercholesterolemia, unspecified Status: Acute Assessment and Plan: Continue with home medication looks like he was on lovastatin. HPI Data of Consult Consult date: 03/05/21 Requesting Physician: Amor Gonzalez MD Primary Care Provider: Israel Bauer MD Consult Narrative Narrative: H&P: HPI History of Present Illness Date/Time: 03/05/21 18:22 this is a 86-year-old male patient who has a past medical history of atrial fibrillation. The patient was last admitted here on 01/19/2021 with the patient was found to be in AFib atrial fibrillation he was given IV Lopressor and started on a Cardizem drip. He converted back to sinus rhythm at that time. The patient was placed on metoprolol and Xarelto. The patient soon developed some hematuria. He thought that maybe it was the Xarelto causing the hematuria so he stopped taking it and was to follow-up with cardiology. However on 02/21/2020 the patient was found to have a right renal stone measuring 1.7 cm. the patient was taken to OR per for cystoscopy and a right ureteral stent placement. The patient went back into atrial fibrillation. Dr. Acuña saw the patient in recovery and recommended that the patient be placed on sotalol. His heart rate is still in the 130s. Patient is not having any chest pain or palpitations. The patient is requesting to go home at this point. Per Cardiology note it stated that if he persistent atrial fibrillation and anticoagulation will need to be resumed despite the history of hematuria. There was concern for anticoagulation at this time due to his procedure today. The patient was admitted to same-day surgery per urology and the hospitalist was consulted on the date of service of Review of Systems Review of Systems: All systems reviewed & are unremarkable except as noted in HPI and below Constitutional: Constitutional: Reports as per HPI and Reports no additional constitutional complaints Eyes: Eyes: Reports as per HPI and Reports no additional eye complaints ENT: Reports system reviewed and no additional complaints, except as documented and Reports Normal hearing present Cardiovascular: Cardiovascular: Reports no additional cardiovascular complaints Respiratory: Respiratory: Reports no additional respiratory complaints and Reports no additional respiratory complaints Gastrointestinal: Gastrointestinal: Reports as per HPI and Reports no additional gastrointestinal complaints Musculoskeletal: Musculoskeletal: Reports no additional musculoskeletal complaints Integumentary/Breasts: Skin/Breast: Reports system reviewed and no additional complaints, except as docu and Reports as per HPI Neurologic: Reports system reviewed and no additional complaints, except as documented, Reports as
--- NOTE | 2021-03-05 19:47 | ADMGEN ---
This patient, Rai Bustillos, was admitted to IMU Room 205-02 at 1610. Patient/family oriented to hospital policies and general routines including ID bracelet, bed and alarms, visiting hours, pain management, procedures, bathroom and other care routines, personal items, smoking policy, room service/diet, and visiting hours. Information on how to activate the Rapid Response Team has been discussed. Patient/Family are encouraged to report perceived risks to care and to ask questions if they do not understand what they are told or what they should do.
[2021-03-05] MEDS: PANTOPRAZOLE 40 MG TABLET PO (20:51)
[2021-03-05] MEDS: VALSARTAN 160 MG TABLET 320 MG PO (20:52)
[2021-03-05] MEDS: HYDROcodone/acetaminophen (*CRX) 5-325 MG TABLET 1 TAB PO (20:52)
[2021-03-06] VITALS (17 sets, daily range): BP systolic 88–114; BP diastolic 42–72; PULSE 49–115; RESP 12–16; TEMP 36.1–36.6; O2SAT 96–99; BMI 23.1
--- NOTE | 2021-03-06 04:39 | ECG_ITS ---
Measurements Intervals [place] Rate: 54 P: -1 [place]: 155 QRS: -54 QRSD: 81 T: 25 QT: 425 QTc: 406 Interpretive Statements SINUS BRADYCARDIA LEFT AXIS DEVIATION BORDERLINE T WAVE ABNORMALITY- INFERIOR LEADS PROLONGED QT INTERVAL BASELINE ARTIFACT- I, III, AVR, AVL ABNORMAL ECG Electronically Signed On 03-06-2021 17:46:49 CDT by Jeevan Wheatley D.O.
[2021-03-06 05:45] LABS: Basophils Percent Auto 0.1 % (0.2-1.2); Hematocrit 40.9 % (42.0-52.0); Immature Granulocyte Absolute 0.06 K/mm3 (0.00-0.031); Immature Granulocyte Percent A 0.5 % (0-0.5); Lymphocytes Absolute Auto 1.36 K/mm3 (0.9-3.2); Lymphocytes Percent Auto 10.2 % (18.3-44.2); Mean Corpuscular HGB Conc 34.2 g/dl (32-36); Mean Corpuscular Hemoglobin 30.6 pg (26-34); Mean Corpuscular Volume 89.5 fl (80-100); Mean Platelet Volume 9.9 fl (7.4-10.4); Monocytes Absolute Auto 0.9 K/mm3 (0.1-0.6); Monocytes Percent Auto 6.5 % (2.6-8.5); Neutrophils Percent Auto 82.7 % (45.5-73.1); Platelet Count Result 184 k/mm3 (150-375); Red Blood Count 4.57 M/mm3 (4.6-6.20); Red Cell Distribution Width 12.6 % (11.5-14.5); White Blood Count 13.3 K/mm3 (4.5-10.0)
[2021-03-06 06:14] LABS: Anion Gap 4 mmol/L (8-16); Blood Urea Nitrogen 21 mg/dL (9-20); Calcium 8.8 mg/dL (8.4-10.2); Carbon Dioxide 26 mmol/L (22-30); Chloride 109 mmol/L (98-107); Estimated CRCL calculation 41 ml/min; Estimated Glomerular Filt Rate 52; Glucose 120 mg/dL (75-110); Potassium 4.2 mmol/L (3.4-5.0); Sodium 139 mmol/L (137-145)
[2021-03-06] MEDS: HYDROcodone/acetaminophen (*CRX) 5-325 MG TABLET 1 TAB PO ×2 (06:33→22:15)
--- NOTE | 2021-03-06 09:06 | PM.IMPN ---
Progress Note: A&P Assessment and Plan (1) Atrial fibrillation with RVR: Code(s): I48.91 - Unspecified atrial fibrillation Status: Acute Assessment and Plan: The patient was seen by Cardiology and recovery. His medication is going to be changed from metoprolol to sotalol. No anticoagulation today due to his procedure. Cardiology has been consulted. SCD for DVT prophylaxis. Continue current treatment. (2) Chronic kidney disease, stage 3: Code(s): N18.30 - Chronic kidney disease, stage 3 unspecified Status: Acute Assessment and Plan: Patient appears to be at his baseline with a BUN and creatinine. However GFR appears to be the same as well. (3) Hypertension: Code(s): I10 - Essential (primary) hypertension Status: Acute Assessment and Plan: The patient's metoprolol will be changed to sotalol. On valsartan as well. (4) Right renal stone: Code(s): N20.0 - Calculus of kidney Status: Acute Assessment and Plan: Please see operative note for a cystoscopy with a right renal stent for 1.9 cm stone seen on the abdominal x-ray today. Further care per Urology. (5) Pure hypercholesterolemia: Code(s): E78.00 - Pure hypercholesterolemia, unspecified Status: Acute Assessment and Plan: Continue with home medication looks like he was on lovastatin. Additional Plan Will continue current plan of care and treatment. Will discuss with cardiology and urology about discharge plan. Stable examination present time. Subjective Date/time seen: 03/06/21 09:06 Patient was seen during the morning rounds today. Patient is feeling better. Denies any palpitations. No shortness of breath or chest pain. Mild burning urination. No abdominal pain,nausea or vomiting. Mood stable. Review of Systems Review of Systems: All systems reviewed & are unremarkable except as noted in HPI and below (the history and physical exam.) Exam Narrative: Exam Narrative: HEENT:-pupils equally reactive to light, follow finger, no JVD, no bruit. Lungs:-clear to auscultation. Heart:-S1-S2, irregular irregular Abdomen:-soft, nontender, bowel sounds positive. Extremities:-no cyanosis, clubbing, edema. SUPERVISOR SPINNING:-alert and oriented x3. No neuro focal deficit. Objective Data Vital Signs Vital Signs: Vital Signs - 24 hr 03/05/21 10:00 03/05/21 12:59 03/05/21 13:10 Temperature 36.6 C 36.2 C L Pulse Rate 62 116 H 120 H Respiratory Rate 20 18 18 Blood Pressure 131/65 141/104 H 126/83 Pulse Oximetry 100 100 100 03/05/21 13:25 03/05/21 13:40 03/05/21 13:55 Temperature Pulse Rate 122 H 126 H 140 H Respiratory Rate 18 20 20 Blood Pressure 128/84 136/99 H 123/72 Pulse Oximetry 100 99 99 03/05/21 14:10 03/05/21 14:25 03/05/21 14:40 Temperature Pulse Rate 140 H 137 H 130 H Respiratory Rate 18 12 20 Blood Pressure 130/80 126/77 115/71 Pulse Oximetry 99 99 97 03/05/21 14:55 03/05/21 14:56 03/05/21 15:10 Temperature Pulse Rate 127 H 127 H 127 H Respiratory Rate 20 18 Blood Pressure 122/74 124/72 Pulse Oximetry 98 99 03/05/21 15:25 03/05/21 15:40 03/05/21 16:00 Temperature Pulse Rate 133 H 122 H 133 H Respiratory Rate 18 20 20 Blood Pressure 126/89 120/72 115/77 Pulse Oximetry 100 03/05/21 16:15 03/05/21 19:22 03/05/21 20:00 Temperature 35.7 C L 36.1 C L Pulse Rate 140 H 127 H 127 H Respiratory Rate 16 16 16 Blood Pressure 105/82 121/108 H Pulse Oximetry 99 98 98 03/05/21 20:51 03/05/21 22:00 03/06/21 00:00 Temperature 36.4 C L Pulse Rate 127 H 121 H 100 Respiratory Rate 16 Blood Pressure 114/72 Pulse Oximetry 99 03/06/21 00:14 03/06/21 02:00 03/06/21 04:00 Temperature 36.6 C Pulse Rate 81 51 L 57 L Respiratory Rate 16 Blood Pressure 102/47 L Pulse Oximetry 96 03/06/21 06:00 03/06/21 08:00 Temperature 36.6 C Pulse Rate 49 L 59 L Respiratory Rate 12 Blood Pressure 94/44 L Pulse Oximetry 98
[2021-03-06] MEDS: OPTI-GEN TAB 1 TABLET PO (09:31)
[2021-03-06] MEDS: PANTOPRAZOLE 40 MG TABLET PO ×2 (09:31→21:27)
--- NOTE | 2021-03-06 10:12 | WPDUROPN2 ---
Progress Note: A&P Assessment and Plan (1) Right renal stone: Code(s): N20.0 - Calculus of kidney Status: Acute Assessment and Plan: s/p ESWL needs followup with [facility] with Dr Gonzalez for stent removal. he will need to strain urine (2) A-fib: Code(s): I48.91 - Unspecified atrial fibrillation Status: Acute Assessment and Plan: appreciate cardiology management and recs. 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 anticoagulation on hold from recent procedure. Subjective Subjective Date/Time Seen: 03/06/21 10:12 NO abdominal pain or back pain. urine has remained clear. No fevers or chills. heart rate improved. Exam Const: General: cooperative, healthy appearing, comfortable and no acute distress Eyes: General: appearance normal, both eyes and all related structures Resp: Effort & Inspection: normal respiratory effort, able to speak in complete sentences and no audible wheezes GI: Inspection: normal to inspection and non-distended Rectal Exam: deferred : General: Yes bimanual renal exam normal bilaterally, Yes bladder normal to palpation and Yes no CVA tenderness Skin: General skin exam: normal color and no rashes or lesions noted Neuro: General: oriented to person, oriented to place, oriented to time and patient oriented x3 Extrem: General: normal to inspection, capillary refill normal and no calf tenderness Objective Data Vital Signs Vital Signs: Vital Signs - 24 hr 03/05/21 12:59 03/05/21 13:10 03/05/21 13:25 Temperature 36.2 C L Pulse Rate 116 H 120 H 122 H Respiratory Rate 18 18 18 Blood Pressure 141/104 H 126/83 128/84 Pulse Oximetry 100 100 100 03/05/21 13:40 03/05/21 13:55 03/05/21 14:10 Temperature Pulse Rate 126 H 140 H 140 H Respiratory Rate 20 20 18 Blood Pressure 136/99 H 123/72 130/80 Pulse Oximetry 99 99 99 03/05/21 14:25 03/05/21 14:40 03/05/21 14:55 Temperature Pulse Rate 137 H 130 H 127 H Respiratory Rate 12 20 20 Blood Pressure 126/77 115/71 122/74 Pulse Oximetry 99 97 98 03/05/21 14:56 03/05/21 15:10 03/05/21 15:25 Temperature Pulse Rate 127 H 127 H 133 H Respiratory Rate 18 18 Blood Pressure 124/72 126/89 Pulse Oximetry 99 03/05/21 15:40 03/05/21 16:00 03/05/21 16:15 Temperature 35.7 C L Pulse Rate 122 H 133 H 140 H Respiratory Rate 20 20 16 Blood Pressure 120/72 115/77 105/82 Pulse Oximetry 100 99 03/05/21 19:22 03/05/21 20:00 03/05/21 20:51 Temperature 36.1 C L Pulse Rate 127 H 127 H 127 H Respiratory Rate 16 16 Blood Pressure 121/108 H Pulse Oximetry 98 98 03/05/21 22:00 03/06/21 00:00 03/06/21 00:14 Temperature 36.4 C L Pulse Rate 121 H 100 81 Respiratory Rate 16 Blood Pressure 114/72 Pulse Oximetry 99 03/06/21 02:00 03/06/21 04:00 03/06/21 06:00 Temperature 36.6 C Pulse Rate 51 L 57 L 49 L Respiratory Rate 16 Blood Pressure 102/47 L Pulse Oximetry 96 03/06/21 08:00 Temperature 36.6 C Pulse Rate 59 L Respiratory Rate 12 Blood Pressure 94/44 L Pulse Oximetry 98 Intake/Output Intake/Output: Intake & Output 03/03/21 03/04/21 03/05/21 03/06/21 23:59 23:59 23:59 23:59 Intake Total 590 Output Total 650 850 Balance -60 -850 Meds/Results Medications: Active Medications Generic Name Dose Route Start Last Admin Trade Name Freq PRN Reason Stop Dose Admin Hydrocodone Bitart/Acetaminophen 1 tab 03/05/21 14:37 03/06/21 06:33 Hydrocodone/Acetaminophen (*Crx) 5-325 Mg Tablet PO 1 tab Q4H PRN Administration Moderate Pain (4-6) Fentanyl Citrate 25 mcg 03/04/21 12:33 Fentanyl Citrate Inj (*Crx) 100 Mcg/2 Ml Vial IV PUSH Q2M PRN Pain Ceftriaxone Sodium/Dextrose 1 gm in 50 mls @ 100 mls/hr 03/06/21 09:00 Rocephin 1 Gm/D5w 50 Ml IVPB Q24H ALONSO Dextrose/Sodium Chloride 1,000 mls @ 75 mls/hr 03/06/21 09:05 Dextrose 5% Sodium Chloride 0.9% IV CONT 03/07/21 18:00 .[id number] ALONSO
[2021-03-06] MEDS: SOTALOL HCL 80 MG TABLET PO ×2 (11:10→21:27)
--- NOTE | 2021-03-06 11:12 | PM.PNCARD ---
Progress Note: A&P Additional Plan 86-year-old man with: Paroxysmal atrial fibrillation doing well converted to sinus rhythm on sotalol. This will be continued and I would anticipate discharge tomorrow assuming there are no signs of proarrhythmia and no recurrence of atrial fib. Gennaro Acuña MD [facility] Subjective Date/time seen: Date of service: 03/06/21 11:12 Interval history: Follow-up visit in this 86-year-old man with: Paroxysmal atrial fibrillation with asymptomatic recurrence during renal lithotripsy yesterday. He a patient has been shifted from metoprolol to sotalol and yesterday evening has converted back to sinus rhythm. Because this is a brief recurrence of atrial fibrillation is patient was expected to have significant hematuria should be anticoagulated we made a mutual decision to withhold anticoagulation at this time. He is asymptomatic this morning in sinus rhythm. He is concerned about lower systolic blood pressure reading. Having said that he is asymptomatic Exam Const: General: comfortable and no acute distress HENMT: Mouth: Yes moist mucous membranes Eyes: Sclera: sclerae normal Pupils: Equal, round and reactive pupils present Neck: Neck: supple and no JVD Thyroid: thyroid normal Resp: Effort & Inspection: normal respiratory effort Auscultation: clear to auscultation bilaterally Cardio: Rate: regular rate and bradycardic Rhythm: regular rhythm GI: GI Palp: Yes Soft to palpation Auscultation: normal bowel sounds Neuro: General: gait normal Cognition (Neuro): normal cognition Extrem: General: normal to inspection Objective Data Vital Signs Vital Signs: Vital Signs - 24 hr 03/05/21 12:59 03/05/21 13:10 03/05/21 13:25 Temperature 36.2 C L Pulse Rate 116 H 120 H 122 H Respiratory Rate 18 18 18 Blood Pressure 141/104 H 126/83 128/84 Pulse Oximetry 100 100 100 03/05/21 13:40 03/05/21 13:55 03/05/21 14:10 Temperature Pulse Rate 126 H 140 H 140 H Respiratory Rate 20 20 18 Blood Pressure 136/99 H 123/72 130/80 Pulse Oximetry 99 99 99 03/05/21 14:25 03/05/21 14:40 03/05/21 14:55 Temperature Pulse Rate 137 H 130 H 127 H Respiratory Rate 12 20 20 Blood Pressure 126/77 115/71 122/74 Pulse Oximetry 99 97 98 03/05/21 14:56 03/05/21 15:10 03/05/21 15:25 Temperature Pulse Rate 127 H 127 H 133 H Respiratory Rate 18 18 Blood Pressure 124/72 126/89 Pulse Oximetry 99 03/05/21 15:40 03/05/21 16:00 03/05/21 16:15 Temperature 35.7 C L Pulse Rate 122 H 133 H 140 H Respiratory Rate 20 20 16 Blood Pressure 120/72 115/77 105/82 Pulse Oximetry 100 99 03/05/21 19:22 03/05/21 20:00 03/05/21 20:51 Temperature 36.1 C L Pulse Rate 127 H 127 H 127 H Respiratory Rate 16 16 Blood Pressure 121/108 H Pulse Oximetry 98 98 03/05/21 22:00 03/06/21 00:00 03/06/21 00:14 Temperature 36.4 C L Pulse Rate 121 H 100 81 Respiratory Rate 16 Blood Pressure 114/72 Pulse Oximetry 99 03/06/21 02:00 03/06/21 04:00 03/06/21 06:00 Temperature 36.6 C Pulse Rate 51 L 57 L 49 L Respiratory Rate 16 Blood Pressure 102/47 L Pulse Oximetry 96 03/06/21 08:00 Temperature 36.6 C Pulse Rate 59 L Respiratory Rate 12 Blood Pressure 94/44 L Pulse Oximetry 98 Intake/Output Intake/Output: Intake & Output 03/03/21 03/04/21 03/05/21 03/06/21 23:59 23:59 23:59 23:59 Intake Total 590 120 Output Total 650 850 Balance -60 -730 Meds/Results Medications: Active Medications Generic Name Dose Route Start Last Admin Trade Name Freq PRN Reason Stop Dose Admin Hydrocodone Bitart/Acetaminophen 1 tab 03/05/21 14:37 03/06/21 06:33 Hydrocodone/Acetaminophen (*Crx) 5-325 Mg Tablet PO 1 tab Q4H PRN Administration Moderate Pain (4-6) Fentanyl Citrate 25 mcg 03/04/21 12:33 Fentanyl Citrate Inj (*Crx) 100 Mcg/2 Ml Vial IV PUSH Q2M PRN Pain Ceftriaxone Sodium/Dextrose 1 gm in 50 mls @ 100 mls/hr 03/06/21 09
--- NOTE | 2021-03-06 12:28 | WPDANESPN ---
Anes - Prog Note Post-Op Date/Time: 03/06/21 12:28 Cardiovascular status: normal Respiratory status: normal Airway patency: baseline Mental status: baseline Post-Op hydration status: normal Vital Signs: Last Vital Signs Temp 36.6 C 03/06/21 11:49 Pulse 56 L 03/06/21 11:49 Resp 14 03/06/21 11:49 BP 101/47 L 03/06/21 11:49 Pulse Ox 99 03/06/21 11:49 Pain Score (VAS): 0 I/O: Intake & Output 03/05/21 03/06/21 03/06/21 23:59 07:59 15:59 Intake Total 540 120 Output Total 850 Balance 540 -850 120 Laboratory Tests 03/06/21 05:05 03/06/21 05:05 03/06/21 03/06/21 05:05 05:05 WBC 13.3 H RBC 4.57 L Hgb 14.0 Hct 40.9 L MCV 89.5 MCH 30.6 MCHC 34.2 RDW 12.6 Plt Count 184 MPV 9.9 Immature Gran % (Auto) 0.5 Neut % (Auto) 82.7 H Lymph % (Auto) 10.2 L Hawkins % (Auto) 6.5 Eos % (Auto) 0.0 Baso % (Auto) 0.1 L Lymph # (Auto) 1.36 Hawkins # (Auto) 0.9 H Eos # (Auto) 0.0 Baso # (Auto) 0.0 Abs Immat Gran (auto) 0.06 H Absolute Neuts (auto) 11.0 H Absolute Nucleated RBC 0.0 Nucleated RBC % 0.0 Sodium 139 Potassium 4.2 Chloride 109 H Carbon Dioxide 26 Anion Gap 4 L BUN 21 H Creatinine 1.30 Estim Creat Clear Calc 41 Estimated GFR 52 L Glucose 120 H Calcium 8.8 Post-procedural complaints: none Patient Feedback: Patient satisfied with anesthetic care.
--- NOTE | 2021-03-06 13:00 | ECG_ITS ---
SINUS BRADYCARDIA LEFT AXIS DEVIATION BORDERLINE T WAVE ABNORMALITY- INFERIOR LEADS PROLONGED QT INTERVAL BASELINE ARTIFACT- I, III, AVR, AVL ABNORMAL ECG Electronically Signed On 03-06-2021 17:46:49 CDT by Jeevan Wheatley D.O. COMPARED TO ECG 03/06/2021 04:46:49 LEFT-AXIS DEVIATION NOW PRESENT MTDD
[2021-03-06] MEDS: DEXTROSE 5%/0.9% SOD CHL 1,000 ML 75 ML IV CONT (13:35)
[2021-03-06] MEDS: SODIUM CHLORIDE 0.9% IV 500 ML IV CONT (17:40)
[2021-03-06] MEDS: VALSARTAN 160 MG TABLET PO (21:27)
[2021-03-06] MEDS: LOVASTATIN 20 MG TABLET 40 MG PO (21:27)
[2021-03-07] VITALS (13 sets, daily range): BP systolic 91–128; BP diastolic 49–78; PULSE 53–126; RESP 16–18; TEMP 36.2–36.6; O2SAT 94–98
--- NOTE | ~2021-03-07 | XR_ITS ---
EXAMINATION: XR abdomen/kub 1V DATE: 03/05/2021 09:54 INDICATION: Right kidney stone. TECHNIQUE: A supine view of the abdomen on 2 radiographs was obtained. COMPARISON: CT abdomen and pelvis 02/20/2021 FINDINGS: There are no dilated loops of bowel. There are phleboliths in the pelvis. There is a 1.9 cm stone in right renal pelvis. IMPRESSION: 1. 1.9 cm stone in right renal pelvis. Reviewed, dictated and finalized at location A.
--- NOTE | 2021-03-07 00:17 | ECG_ITS ---
Measurements Intervals [place] Rate: 61 P: 66 [place]: 157 QRS: 13 QRSD: 160 T: 7 QT: 481 QTc: 486 Interpretive Statements SINUS RHYTHM INCOMPLETE RIGHT BUNDLE BRANCH BLOCK BASELINE ARTIFACT- I, III, AVR, AVL, AVF, V1-V6 BORDERLINE ECG Electronically Signed On 03-07-2021 6:24:49 CDT by Jeevan Wheatley D.O.
[2021-03-07] MEDS: DEXTROSE 5%/0.9% SOD CHL 1,000 ML 75 ML IV CONT (04:37)
[2021-03-07 04:51] LABS: Hematocrit 34.1 % (42.0-52.0); Hemoglobin 11.4 g/dL (14.0-18.0); Mean Corpuscular HGB Conc 33.4 g/dl (32-36); Mean Corpuscular Hemoglobin 30.8 pg (26-34); Mean Corpuscular Volume 92.2 fl (80-100); Mean Platelet Volume 9.8 fl (7.4-10.4); Platelet Count Result 141 k/mm3 (150-375); Red Cell Distribution Width 13.2 % (11.5-14.5); White Blood Count 9.7 K/mm3 (4.5-10.0)
--- NOTE | 2021-03-07 05:08 | ECG_ITS ---
Measurements Intervals [place] Rate: 130 P: [place]: 0 QRS: 20 QRSD: 74 T: 55 QT: 315 QTc: 464 Interpretive Statements ATRIAL FIBRILLATION WITH RAPID VENTRICULAR RESPONSE ABNORMAL ECG Electronically Signed On 03-07-2021 6:26:21 CDT by Jeevan Wheatley D.O.
[2021-03-07 05:16] LABS: Anion Gap 1 mmol/L (8-16); Blood Urea Nitrogen 21 mg/dL (9-20); Calcium 7.6 mg/dL (8.4-10.2); Carbon Dioxide 28 mmol/L (22-30); Chloride 109 mmol/L (98-107); Estimated CRCL calculation 44 ml/min; Estimated Glomerular Filt Rate 58; Glucose 110 mg/dL (75-110); Potassium 3.9 mmol/L (3.4-5.0); Sodium 138 mmol/L (137-145)
[2021-03-07] MEDS: SOTALOL HCL 40 MG, SOTALOL HCL 80 MG 120 MG PO (07:38)
--- NOTE | 2021-03-07 08:38 | PM.DS ---
DS: Admitting Diagnosis Admitting Diagnosis Admitting Diagnosis: Atrial fibrillation with rapid ventricular response Renal stone DS: Discharge Diagnosis Discharge Diagnosis (1) Atrial fibrillation with RVR: Code(s): I48.91 - Unspecified atrial fibrillation Status: Acute Assessment and Plan: The patient was seen by Cardiology and recovery. His medication is going to be changed from metoprolol to sotalol. No anticoagulation today due to his procedure. Cardiology has been consulted. SCD for DVT prophylaxis. Continue current treatment. (2) Chronic kidney disease, stage 3: Code(s): N18.30 - Chronic kidney disease, stage 3 unspecified Status: Acute Assessment and Plan: Patient appears to be at his baseline with a BUN and creatinine. However GFR appears to be the same as well. (3) Hypertension: Code(s): I10 - Essential (primary) hypertension Status: Acute Assessment and Plan: The patient's metoprolol will be changed to sotalol. On valsartan as well. (4) Right renal stone: Code(s): N20.0 - Calculus of kidney Status: Acute Assessment and Plan: Please see operative note for a cystoscopy with a right renal stent for 1.9 cm stone seen on the abdominal x-ray today. Further care per Urology. (5) Pure hypercholesterolemia: Code(s): E78.00 - Pure hypercholesterolemia, unspecified Status: Acute Assessment and Plan: Continue with home medication looks like he was on lovastatin. DS: Summary Hospital Course Reason for hospitalization: Atrial fibrillation with rapid ventricular response Renal stone Hospital Course: 86 years old male was admitted with complaint of having palpitation patient was found to have atrial fibrillation with rapid ventricular response. Patient also have renal stone. Urology was consulted for for home the procedure and stent was placed. Cardiology was consulted for atrial fibrillation with rapid ventricular response. Patient metoprolol was discontinued and sotalol was added. Patient did not have any complication during the stay in the hospital. Today patient is feeling better so patient was discharged home in stable condition. Patient will be followed up by cardiology, urology and primary care physician outpatient next week. Time spent discussing smoking cessation with patient: 3 to 10 minutes Status at Discharge Cognitive/behavioral status at discharge: Stable Functional status at discharge: independent ambulation Overall status at discharge: patient is back to baseline Time Spent with Patient Time attestation: Total time spent providing and/or coordinating discharge services: Exam Narrative: Exam Narrative: HEENT:-pupils equally reactive to light, follow finger, no JVD, no bruit. Lungs:-clear to auscultation. Heart:-S1-S2, irregular irregular Abdomen:-soft, nontender, bowel sounds positive. Extremities:-no cyanosis, clubbing, edema. 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 No neuro focal deficit. DS: Data Data Completed and Pending Labs on day of discharge: Labs from last 24 hours 03/07/21 03/07/21 04:39 04:39 WBC 9.7 RBC 3.70 L Hgb 11.4 L Hct 34.1 L MCV 92.2 MCH 30.8 MCHC 33.4 RDW 13.2 Plt Count 141 L MPV 9.8 Sodium 138 Potassium 3.9 Chloride 109 H Carbon Dioxide 28 Anion Gap 1 L BUN 21 H Creatinine 1.20 Estim Creat Clear Calc 44 Estimated GFR 58 L Glucose 110 Calcium 7.6 L Discharge Plan Discharge Patient Disposition: Home, Self-Care Discharge Instructions: 1) Activity: No driving or important decisions [id number]. No lifting/straining >15lbs. [id number]. 2) Strain urine until one stone fragment retrieved. Bring that fragment to your follow-up visit. 3) Diet: resume normal pre-admission diet. 4) Follow-up: 2-3 weeks with [facility] / call for appointment ([phone]) Stand Alone Forms: General Discharge Instructions Discharge Medications: New h
--- NOTE | 2021-03-07 08:53 | PM.PNCARD ---
Progress Note: A&P Additional Plan 86-year-old man with: Paroxysmal atrial fibrillation. Plan was to discharge this patient this morning but unfortunately he is back in atrial fibrillation. Fortunately with his arrhythmia he is asymptomatic. I advanced the dosage of his Betapace and we will continue to watch his telemetry. If he converts back to sinus rhythm later this morning or early this afternoon I would not rule out the possibility of discharging him at that time. The longer this persists the more low we need also to think about resuming anticoagulation. Gennaro Acuña MD [facility] Subjective Date/time seen: Date of service: 03/07/21 08:53 Interval history: 86-year-old man with: Paroxysmal atrial fibrillation with recurrences despite metoprolol treatment. I saw him in recovery room because recurrent AFib during lithotripsy of his renal stone. Despite RVR he was totally asymptomatic of his AFib despite RVR he was totally asymptomatic of his arrhythmia. He was his rhythm yesterday after the 1st couple doses of sotalol. This morning an asymptomatic fashion he is back in atrial fibrillation with heart rates ranging from 100-125. I increased the dosage of sotalol to 120 mg q.12 hours as of this morning. Exam Const: General: comfortable and no acute distress Eyes: Sclera: sclerae normal Pupils: Equal, round and reactive pupils present Neck: Neck: supple and no JVD Thyroid: thyroid normal Resp: Effort & Inspection: normal respiratory effort Auscultation: clear to auscultation bilaterally Cardio: Rhythm: abnormal rhythm irregularly irregular GI: GI Palp: Yes Soft to palpation Auscultation: normal bowel sounds Neuro: Cognition (Neuro): normal cognition Extrem: General: normal to inspection Objective Data Vital Signs Vital Signs: Vital Signs - 24 hr 03/06/21 10:00 03/06/21 11:10 03/06/21 11:49 Temperature 36.6 C Pulse Rate 60 56 L 56 L Respiratory Rate 14 Blood Pressure 101/47 L Pulse Oximetry 99 03/06/21 12:00 03/06/21 14:00 03/06/21 16:00 Temperature 36.4 C Pulse Rate 57 L 61 59 L Respiratory Rate 14 12 Blood Pressure 101/45 L Pulse Oximetry 98 96 03/06/21 18:00 03/06/21 20:00 03/06/21 21:27 Temperature 36.2 C L Pulse Rate 63 61 64 Respiratory Rate 16 Blood Pressure 101/43 L Pulse Oximetry 97 03/06/21 22:00 03/06/21 23:43 03/07/21 00:00 Temperature 36.1 C L Pulse Rate 59 L 54 L 54 L Respiratory Rate 16 16 Blood Pressure 106/62 Pulse Oximetry 98 98 03/07/21 02:00 03/07/21 04:00 03/07/21 04:55 Temperature 36.3 C L Pulse Rate 57 L 55 L 123 H Respiratory Rate 16 Blood Pressure 107/50 L Pulse Oximetry 97 03/07/21 06:00 03/07/21 06:59 03/07/21 07:38 Temperature 36.2 C L Pulse Rate 118 H 126 H 120 H Respiratory Rate 18 Blood Pressure 128/78 Pulse Oximetry 98 03/07/21 07:44 Temperature Pulse Rate 120 H Respiratory Rate 18 Blood Pressure Pulse Oximetry 98 Intake/Output Intake/Output: Intake & Output 03/04/21 03/05/21 03/06/21 03/07/21 23:59 23:59 23:59 23:59 Intake Total 590 1210 1000 Output Total 650 1250 100 Balance -60 -40 900 Meds/Results Medications: Active Medications Generic Name Dose Route Start Last Admin Trade Name Freq PRN Reason Stop Dose Admin Hydrocodone Bitart/Acetaminophen 1 tab 03/05/21 14:37 03/06/21 22:15 Hydrocodone/Acetaminophen (*Crx) 5-325 Mg Tablet PO 1 tab Q4H PRN Administration Moderate Pain (4-6) Fentanyl Citrate 25 mcg 03/04/21 12:33 Fentanyl Citrate Inj (*Crx) 100 Mcg/2 Ml Vial IV PUSH Q2M PRN Pain Ceftriaxone Sodium/Dextrose 1 gm in 50 mls @ 100 mls/hr 03/06/21 09:00 03/06/21 14:21 Rocephin 1 Gm/D5w 50 Ml IVPB Infused Q24H ALONSO Infusion Dextrose/Sodium Chloride 1,000 mls @ 75 mls/hr 03/06/21 09:05 03/07/21 04:37 Dextrose 5% Sodium Chloride 0.9% IV CONT 03/07/21 18:00 75 mls/hr .[id number] ALONSO Administration L
[2021-03-07] MEDS: HYDROcodone/acetaminophen (*CRX) 5-325 MG TABLET 1 TAB PO (09:31)
[2021-03-07] MEDS: OPTI-GEN TAB 1 TABLET PO (09:33)
[2021-03-07] MEDS: PANTOPRAZOLE 40 MG TABLET PO (09:33)
--- NOTE | 2021-03-07 09:45 | ECG_ITS ---
Measurements Intervals [place] Rate: 66 P: -10 [place]: 146 QRS: -13 QRSD: 83 T: 14 QT: 422 QTc: 442 Interpretive Statements SINUS RHYTHM VOLTAGE CRITERIA FOR LVH MINIMAL Q WAVES- HIGH LATERAL LEADS BORDERLINE T WAVE ABNORMALITY- INFERIOR LEADS BASELINE ARTIFACT- I, III, AVR, AVL, AVF BORDERLINE ECG Electronically Signed On 03-07-2021 14:19:15 CDT by Jeevan Wheatley D.O.
--- NOTE | 2021-03-07 10:01 | WPDUROPN2 ---
Progress Note: A&P Assessment and Plan (1) Right renal stone: Code(s): N20.0 - Calculus of kidney Status: Acute Assessment and Plan: s/p ESWL + stent he will need KUB prior to stent removal f/u with Dr Gonzalez after discharge pt understands stent is temporary and will need removal (2) A-fib: Code(s): I48.91 - Unspecified atrial fibrillation Status: Acute Assessment and Plan: appreciate cardiology recs dc when stable form cardiac standpoint Subjective Subjective Date/Time Seen: 03/07/21 10:01 Denies hematuria, dysuria or back pain. urine clear. working with cardiology to get a-fib better rate controlled Review of Systems Review of Systems: All systems reviewed & are unremarkable except as noted in HPI and below Constitutional: Constitutional: Denies chills and Denies fever(s) Genitourinary: Genitourinary: Denies hematuria Exam Const: General: cooperative, healthy appearing, comfortable and no acute distress HENMT: Head: normal to inspection, normocephalic and atraumatic Resp: Effort & Inspection: normal respiratory effort, able to speak in complete sentences and no audible wheezes : General: Yes no CVA tenderness Skin: General skin exam: normal color and no rashes or lesions noted Neuro: General: oriented to person, oriented to place and oriented to time Extrem: General: no clubbing, cyanosis or edema Objective Data Vital Signs Vital Signs: Vital Signs - 24 hr 03/06/21 11:10 03/06/21 11:49 03/06/21 12:00 Temperature 36.6 C Pulse Rate 56 L 56 L 57 L Respiratory Rate 14 14 Blood Pressure 101/47 L Pulse Oximetry 99 98 03/06/21 14:00 03/06/21 16:00 03/06/21 18:00 Temperature 36.4 C Pulse Rate 61 59 L 63 Respiratory Rate 12 Blood Pressure 101/45 L Pulse Oximetry 96 03/06/21 20:00 03/06/21 21:27 03/06/21 22:00 Temperature 36.2 C L Pulse Rate 61 64 59 L Respiratory Rate 16 Blood Pressure 101/43 L Pulse Oximetry 97 03/06/21 23:43 03/07/21 00:00 03/07/21 02:00 Temperature 36.1 C L Pulse Rate 54 L 54 L 57 L Respiratory Rate 16 16 Blood Pressure 106/62 Pulse Oximetry 98 98 03/07/21 04:00 03/07/21 04:55 03/07/21 06:00 Temperature 36.3 C L Pulse Rate 55 L 123 H 118 H Respiratory Rate 16 Blood Pressure 107/50 L Pulse Oximetry 97 03/07/21 06:59 03/07/21 07:38 03/07/21 07:44 Temperature 36.2 C L Pulse Rate 126 H 120 H 120 H Respiratory Rate 18 18 Blood Pressure 128/78 Pulse Oximetry 98 98 03/07/21 09:28 03/07/21 09:29 Temperature Pulse Rate 106 H 106 H Respiratory Rate Blood Pressure Pulse Oximetry Intake/Output Intake/Output: Intake & Output 03/04/21 03/05/21 03/06/21 03/07/21 23:59 23:59 23:59 23:59 Intake Total 590 1210 1000 Output Total 650 1250 100 Balance -60 -40 900 Meds/Results Medications: Active Medications Generic Name Dose Route Start Last Admin Trade Name Freq PRN Reason Stop Dose Admin Hydrocodone Bitart/Acetaminophen 1 tab 03/05/21 14:37 03/07/21 09:31 Hydrocodone/Acetaminophen (*Crx) 5-325 Mg Tablet PO 1 tab Q4H PRN Administration Moderate Pain (4-6) Fentanyl Citrate 25 mcg 03/04/21 12:33 Fentanyl Citrate Inj (*Crx) 100 Mcg/2 Ml Vial IV PUSH Q2M PRN Pain Ceftriaxone Sodium/Dextrose 1 gm in 50 mls @ 100 mls/hr 03/06/21 09:00 03/07/21 09:33 Rocephin 1 Gm/D5w 50 Ml IVPB 50 mls/hr Q24H ALONSO Administration Dextrose/Sodium Chloride 1,000 mls @ 75 mls/hr 03/06/21 09:05 03/07/21 04:37 Dextrose 5% Sodium Chloride 0.9% IV CONT 03/07/21 18:00 75 mls/hr .[id number] ALONSO Administration Lovastatin 40 mg 03/06/21 21:00 03/06/21 21:27 Lovastatin 20 Mg Tablet PO 40 mg HS ALONSO Administration Morphine Sulfate 2 mg 03/05/21 14:37 Morphine Sulfate (*Crx) 2 Mg/Ml Inj IV PUSH Q4H PRN Pain Rated 7-10 Multivitamins/Minerals 1 tablet 03/06/21 09:00 03/07/21 09:33 Opti-Gen Tab P
--- NOTE | 2021-03-07 10:33 | PC.NURSE ---
Patient converted to SR at 1000, ekg was obtained to verify. Dr. Acuña notified.
== END 2021-03-07 15:08 | disposition home or self-care (01) ==
LOC: ANHSURGERY 04-13 13:56 → ANHIMU 04-13 13:57
PROVIDERS: Admitting Provider Urology; PCP Family Medicine; Visit Provider Internal Medicine
PROC: (CPT 50590; principal; 2021-03-05 11:30)
PROC: (CPT 52352; 2021-03-05 11:30)
DX: N20.0 Calculus of kidney (principal); I48.91 Unspecified atrial fibrillation; I12.9 Hypertensive chronic kidney disease with stage 1 through stage 4 chronic kidney disease, or unspecified chronic kidney disease; N18.30 Chronic kidney disease, stage 3 unspecified; E78.00 Pure hypercholesterolemia, unspecified; Z87.891 Personal history of nicotine dependence
CPT/HCPCS: 52332; 50590; 36415; 74018; 80048; 85025; 85027; 93005; A9270; C1758; C1769; C2617; G0378; J0690; J0696; J1100; J2405; J2704; J3010; J7040; J7042; J7120

== ENCOUNTER 2021-03-23 12:56 | Outpatient (CLI) | payer MEDICARE, BC, SELFPAY ==
--- NOTE | ~2021-03-23 | XR_ITS ---
XR abdomen/kub 1V 03/23/2021 14:04 Indication: Gross hematuria Procedure: KUB Comparison: 03/05/2021 Findings: There is a right internal ureteral stent in expected position. There are multiple clustered stones the right renal pelvis. There is a collection of stones in the distal aspect of the right ure ter. Bowel gas pattern is nonobstructive. There is atherosclerosis. Moderate lumbar spondylosis. Impression: 1: Multiple right renal and distal ureteral stones with right internal ureteral stent in expected pos ition. Reviewed, dictated and finalized at location B. Impression: 1: Multiple right renal and distal ureteral stones with right internal ureteral stent in expected position.
== END 2021-03-23 12:57 | disposition home or self-care (01) ==
LOC: ANHIMG 13:01
PROVIDERS: PCP Family Medicine; Visit Provider Urology
DX: N20.2 Calculus of kidney with calculus of ureter (principal)
CPT/HCPCS: 74018

== ENCOUNTER 2021-04-15 12:41 | Outpatient (CLI) | payer MEDICARE, BC, SELFPAY ==
--- NOTE | ~2021-04-15 | XR_ITS ---
EXAMINATION: XR abdomen/kub 1V INDICATION: Right ureteral stone TECHNIQUE: Supine views of the abdomen were obtained on 2 radiographs. COMPARISON: 03/23/2021 FINDINGS: A right internal ureteral stent is in expected position. There are multiple stones of the r ight renal pelvis measuring up to 6 mm adjacent to the coiled portion of the internal ureteral stent. Previously described [place] of the right distal ureter is nearly completely resolved, consiste nt with interval treatment or passage of stones. There appear to be a couple of small stones at the r ight ureterovesicular junction. Phleboliths are noted in the pelvis. Calcified atherosclerosis is not ed. The visualized lung bases are clear. There is severe lumbar spondylosis. IMPRESSION: 1. Right internal ureteral stent in expected position with stones adjacent to the coiled portion of t he stent in the right renal pelvis. 2. Near complete resolution of Steinstrasse of the distal right ureter. Reviewed, dictated and finalized at location B. IMPRESSION: 1. Right internal ureteral stent in expected position with stones adjacent to t he coiled portion of the stent in the right renal pelvis. 2. Near complete resolution of Steinstrasse of the distal right ureter.
== END 2021-04-15 12:42 | disposition home or self-care (01) ==
PROVIDERS: PCP Family Medicine; Visit Provider Urology
DX: N20.1 Calculus of ureter (principal)
CPT/HCPCS: 74018

== ENCOUNTER → 2022-06-13 10:46 | Outpatient (CLI) | payer MEDICARE, SELFPAY ==
--- NOTE | ~2022-06-13 | XR_ITS ---
EXAM: XR abdomen/kub 1V DATE: 06/13/2022 11:33 HISTORY: Right ureteral stone . COMPARISON: 04/15/2021. FINDINGS: Clear lung bases. Normal bowel gas pattern. No organomegaly. Pelvic phleboliths. Interval removal of the right ureteral stent. Right renal pelvis calcifications likely remain but are partiall y obscured by bowel gas and content. Degenerative change in the lower lumbar spine. IMPRESSION: Right renal pelvis stones likely remain though this study is limited by overlying bowel g as and bowel content. Reviewed, dictated and finalized at location K. IMPRESSION: Right renal pelvis stones likely remain though this study is limite d by overlying bowel gas and bowel content.
== END ==
PROVIDERS: PCP Family Medicine; Visit Provider Urology
DX: N20.1 Calculus of ureter (principal)
CPT/HCPCS: 74018

== ENCOUNTER 2022-12-06 14:07 | Outpatient (CLI) | payer MEDICARE, SELFPAY ==
--- NOTE | ~2022-12-06 | XR_ITS ---
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 RESULT: Lines, tubes, and devices: None. Lungs and pleura: Bibasilar scarring. Otherwise clear. Cardiomediastinal silhouette: Stable. Other: No acute osseous or upper abdominal finding. IMPRESSION: No acute cardiopulmonary process. Reviewed, dictated and finalized at location K. STANT SALES DIRECTOR
[2022-12-06 14:46] LABS: Basophils Absolute Auto 0.1 K/mm3 (0.0-0.1); Basophils Percent Auto 0.9 % (0.2-1.2); Eosinophils Absolute Auto 0.1 K/mm3 (0-0.3); Eosinophils Percent Auto 1.1 % (0-4.4); Hematocrit 45.3 % (42.0-52.0); Hemoglobin 14.6 g/dL (14.0-18.0); Immature Granulocyte Absolute 0.07 K/mm3 (0.00-0.031); Immature Granulocyte Percent A 0.6 % (0-0.5); Lymphocytes Absolute Auto 2.33 K/mm3 (0.9-3.2); Mean Corpuscular HGB Conc 32.2 g/dl (32-36); Mean Corpuscular Hemoglobin 30.2 pg (26-34); Mean Corpuscular Volume 93.8 fl (80-100); Mean Platelet Volume 9.9 fl (7.4-10.4); Monocytes Absolute Auto 0.9 K/mm3 (0.1-0.6); Neutrophils Absolute Auto 8.8 K/mm3 (1.3-6.7); Neutrophils Percent Auto 71.4 % (45.5-73.1); Platelet Count Result 498 k/mm3 (150-375); Red Blood Count 4.83 M/mm3 (4.6-6.20); Red Cell Distribution Width 13.1 % (11.5-14.5); White Blood Count 12.3 K/mm3 (4.5-10.0)
[2022-12-06 14:46] LABS: Add Urine Microscopic? YES; Appearance Urine Slightly Cloudy (Clear); Bilirubin Urine 1+ (Negative); Blood Urine 2+ (Negative); Color Urine Orange (Yellow); Glucose Urine UA Negative (Negative); Ketones Urine Trace mg/dL (Negative); Leukocyte Esterase Ur 1+ LEU/UL (Negative); Nitrate Urine Negative (Negative); Protein Urine 2+ mg/dL (Negative); Specific Grav Ur 1.025 (1.001-1.035); pH Urine 5.5 (5.0-9.0)
[2022-12-06 14:53] LABS: Bacteria Urine 4+ /hpf; Mucus Urine Heavy /lpf; Squamous Epithelial Cell Urine Few /hpf (Few); WBC Urine >75 /hpf
[2022-12-06 15:01] LABS: Alanine Aminotransferase 49 U/L (6-50); Albumin Level 3.8 g/dL (3.5-5.1); Alkaline Phosphatase 190 U/L (38-126); Anion Gap 9 mmol/L (8-16); Aspartate Amino Transferase 107 U/L (17-59); Blood Urea Nitrogen 26 mg/dL (9-20); Calcium 9.2 mg/dL (8.4-10.2); Carbon Dioxide 26 mmol/L (22-30); Chloride 104 mmol/L (98-107); Estimated Glomerular Filt Rate 44; Glucose 103 mg/dL (65-110); Potassium 4.5 mmol/L (3.4-5.0); Sodium 139 mmol/L (137-145)
== END 2022-12-06 14:08 | disposition home or self-care (01) ==
LOC: ANHIMG 14:13
PROVIDERS: PCP Family Medicine; Visit Provider Family Medicine
DX: N39.0 Urinary tract infection, site not specified (principal); R53.83 Other fatigue; R06.02 Shortness of breath
CPT/HCPCS: 36415; 71046; 80053; 81001; 85025; 87077; 87086; 87186

== ENCOUNTER 2023-02-24 13:20 | Outpatient (CLI) | payer MEDICARE, SELFPAY ==
[2023-02-24 13:54] LABS: Basophils Absolute Auto 0.1 K/mm3 (0.0-0.1); Basophils Percent Auto 1.3 % (0.2-1.2); Eosinophils Absolute Auto 0.6 K/mm3 (0-0.3); Eosinophils Percent Auto 8.8 % (0-4.4); Hematocrit 42.3 % (42.0-52.0); Hemoglobin 13.9 g/dL (14.0-18.0); Immature Granulocyte Absolute 0.01 K/mm3 (0.00-0.031); Immature Granulocyte Percent A 0.1 % (0-0.5); Lymphocytes Absolute Auto 1.96 K/mm3 (0.9-3.2); Lymphocytes Percent Auto 27.8 % (18.3-44.2); Mean Corpuscular HGB Conc 32.9 g/dl (32-36); Mean Corpuscular Hemoglobin 31.3 pg (26-34); Mean Corpuscular Volume 95.3 fl (80-100); Mean Platelet Volume 9.7 fl (7.4-10.4); Monocytes Absolute Auto 0.6 K/mm3 (0.1-0.6); Monocytes Percent Auto 8.6 % (2.6-8.5); Neutrophils Absolute Auto 3.8 K/mm3 (1.3-6.7); Neutrophils Percent Auto 53.4 % (45.5-73.1); Platelet Count Result 169 k/mm3 (150-375); Red Blood Count 4.44 M/mm3 (4.6-6.20); Red Cell Distribution Width 14.6 % (11.5-14.5); White Blood Count 7.1 K/mm3 (4.5-10.0)
[2023-02-24 14:08] LABS: Alanine Aminotransferase 23 U/L (6-50); Albumin Level 3.6 g/dL (3.5-5.1); Alkaline Phosphatase 84 U/L (38-126); Anion Gap 8 mmol/L (8-16); Aspartate Amino Transferase 41 U/L (17-59); Bilirubin,Total 0.9 mg/dL (0.2-1.3); Blood Urea Nitrogen 16 mg/dL (9-20); Calcium 8.1 mg/dL (8.4-10.2); Carbon Dioxide 25 mmol/L (22-30); Chloride 108 mmol/L (98-107); Estimated Glomerular Filt Rate > 60; Glucose 91 mg/dL (65-110); Potassium 3.7 mmol/L (3.4-5.0); Sodium 141 mmol/L (137-145)
[2023-02-24 14:15] LABS: NT Pro B Type Natriuretic Pept 3960 pg/mL (19.9-100)
== END 2023-02-24 13:21 | disposition home or self-care (01) ==
PROVIDERS: PCP Family Medicine; Visit Provider Physician Assistant
DX: I50.9 Heart failure, unspecified (principal); D72.829 Elevated white blood cell count, unspecified; I12.9 Hypertensive chronic kidney disease with stage 1 through stage 4 chronic kidney disease, or unspecified chronic kidney disease; N18.30 Chronic kidney disease, stage 3 unspecified
CPT/HCPCS: 36415; 80053; 83880; 85025

== ENCOUNTER 2023-03-02 14:21 | Emergency (ER) | payer MEDICARE, SELFPAY ==
[2023-03-02] VITALS (39 sets, daily range): BP systolic 87–133; BP diastolic 51–113; PULSE 90–142; RESP 12–28; TEMP 36.5; O2SAT 97–100
--- NOTE | ~2023-03-02 | XR_ITS ---
XR chest 2V 03/02/2023 14:58 Indication: Chest palpitations Procedure: 2 view chest Comparison: Comparison to multiple prior studies sequentially, with oldest reviewed study dated 06/2011. Findings: Heart size normal. No focal air space disease, pulmonary edema, pleural effusion or suspect ed pneumothorax. The lungs are hyperinflated which is consistent with, but not diagnostic of chronic obstructive pulmonary disease. No acute osseous abnormality. Impression: 1: No acute cardiopulmonary disease. Reviewed, dictated and finalized at location L. Impression: 1: No acute cardiopulmonary disease.
--- NOTE | 2023-03-02 14:24 | ECG_ITS ---
Measurements Intervals [place] Rate: 131 P: NM: 0 QRS: -4 QRSD: 82 T: 64 QT: 319 QTc: 471 Interpretive Statements ATRIAL FIBRILLATION WITH RAPID VENTRICULAR RESPONSE BASELINE ARTIFACT- I, II, AVR, AVL ABNORMAL ECG COMPARED TO ECG 03/07/2021 09:46:38 ATRIAL FIBRILLATION NOW PRESENT Electronically Signed On 03-02-2023 14:45:57 CDT by Jeevan Wheatley D.O.
[2023-03-02 14:58] LABS: Basophils Absolute Auto 0.1 K/mm3 (0.0-0.1); Basophils Percent Auto 1.2 % (0.2-1.2); Eosinophils Absolute Auto 0.4 K/mm3 (0-0.3); Eosinophils Percent Auto 6.8 % (0-4.4); Hematocrit 44.1 % (42.0-52.0); Hemoglobin 14.5 g/dL (14.0-18.0); Immature Granulocyte Absolute 0.01 K/mm3 (0.00-0.031); Immature Granulocyte Percent A 0.2 % (0-0.5); Lymphocytes Percent Auto 31.1 % (18.3-44.2); Mean Corpuscular HGB Conc 32.9 g/dl (32-36); Mean Corpuscular Hemoglobin 31.5 pg (26-34); Mean Corpuscular Volume 95.9 fl (80-100); Monocytes Absolute Auto 0.6 K/mm3 (0.1-0.6); Monocytes Percent Auto 9.9 % (2.6-8.5); Neutrophils Absolute Auto 3.3 K/mm3 (1.3-6.7); Neutrophils Percent Auto 50.8 % (45.5-73.1); Platelet Count Result 203 k/mm3 (150-375); Red Cell Distribution Width 14.5 % (11.5-14.5); White Blood Count 6.4 K/mm3 (4.5-10.0)
[2023-03-02 15:07] LABS: Alanine Aminotransferase 29 U/L (6-50); Albumin Level 3.9 g/dL (3.5-5.1); Alkaline Phosphatase 92 U/L (38-126); Anion Gap 4 mmol/L (8-16); Aspartate Amino Transferase 49 U/L (17-59); Blood Urea Nitrogen 28 mg/dL (9-20); Calcium 8.8 mg/dL (8.4-10.2); Carbon Dioxide 32 mmol/L (22-30); Chloride 105 mmol/L (98-107); Estimated Glomerular Filt Rate 44; Glucose 134 mg/dL (65-110); Lipase 167 U/L (23-300); Potassium 3.7 mmol/L (3.4-5.0); Sodium 141 mmol/L (137-145)
[2023-03-02 15:18] LABS: Troponin I < 0.012 ng/mL (0.000-0.034)
[2023-03-02 15:23] LABS: INR 1.4; Prothrombin Time 17.7 Seconds (11.1-14.7)
[2023-03-02 15:24] LABS: Partial Thromboplastin Time 38.5 SECONDS (22.3-36.8)
--- NOTE | 2023-03-02 15:37 | ED.ARRPALP ---
HPI - Arrhythmia/Palpitations General Chief Complaint: Arrhythmia/Palpitations Stated Complaint: palpitations Time Seen by Provider: 03/02/23 14:42 History of Present Illness HPI narrative: Patient is an 88-year-old male with a history of A-fib on Eliquis, hyperlipidemia, hypertension presenting with A-fib. Patient states that he has been following with Dr. Deshpande for his atrial fibrillation. States that he has been on sotalol and metoprolol and they have been trying to decrease it. 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 His blood pressure was reportedly in the 60s systolic though the patient states that he was asymptomatic and he felt fine. States that he still feels fine. No chest pain or shortness of breath. No lightheadedness. No recent fevers or chills. No abdominal pain, vomiting, diarrhea. States that he has had multiple UTIs in the last few months and he wants to make sure that he no longer has UTI. Related Data Home Medications Medication Instructions Recorded Confirmed ICaps AREDS2 1 cap PO DAILY 03/05/21 02/24/23 Allergies Allergy/AdvReac Type Severity Reaction Status Date / Time No Known Allergies Allergy Mild Verified 03/02/23 17:42 Review of Systems Review of Systems: All systems reviewed & are unremarkable except as noted in HPI and below PMFSH Past Medical History Medical History A-fib Chronic kidney disease, stage 3 Baseline creatinine ranges between 1.3 and 1.50. Diverticulosis (~02/2016) Noted on colonoscopy per Dr. Gonzalez Gastroesophageal reflux disease Hearing loss Hypertension Pure hypercholesterolemia Surgical History Surgical History History of left inguinal hernia repair History of renal stent S/P cystoscopy Family History Family History Father Family history of lung cancer Social History Social History Social History: Surrogate decision maker: Estuardo Bustillos, child. Code status: Full code. The patient has 4 children. 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 No alcohol or illicit drugs. Smoking packs per day: 1 Smoking cigarettes per day: 20.0 Years smoked: 3 Smoking pack-years: 3.00 Smoking status: Former smoker Tobacco type: cigarettes Second hand tobacco smoke exposure: No Smoking end date: 10[birth year]16/1955 Alcohol intake: current Drinks per week: 2 Substance use: never Substance use type: does not use Living arrangements: alone Additional living arrangements comments: The patient is and lives in [place]. Originally from [facility]. Occupation/Education: retired Additional occupation/education comments: Retired. Gender identity (if verbalized by the patient): Male Sexual Orientation (if Verbalized by the Patient): Straight or Heterosexual Spiritual care concerns: No Exam Narrative: GENERAL: Well-appearing, well-nourished, and in no acute distress. HEAD: Normocephalic, atraumatic. EYES: PERRLA and EOMI. ENT: Nares clear, no rhinorrhea or epistaxis. Mucous membranes moist. NECK: Supple. CHEST: Clear to auscultation. No respiratory distress. HEART: Tachycardic, irregular rhythm ABDOMEN: Soft, nontender, nondistended EXTREMITIES: Normal range of motion. No edema. SKIN: Warm, dry, no rash. NEURO: No focal deficits. Alert and oriented x3. PSYCH: Normal mood and affect. Course Vital Signs Vital signs: Vital Signs Temperature 97.7 F 03/02/23 14:27 Pulse Rate 130 H 03/02/23 14:27 Respiratory Rate 18 03/02/23 14:27 Blood Pressure 133/113 H 03/02/23 14:27 Pulse Oximetry 99 03/02/23 14:27 Oxygen Delivery Room Air 03/02/23 14:27 Temperature 97.7 F 03/02/23 14:27 Pulse Rate 90 03/02/23
[2023-03-02 16:04] LABS: Appearance Urine Cloudy (Clear); Bacteria Urine 4+ /hpf; Bilirubin Urine Negative (Negative); Blood Urine Negative (Negative); Color Urine Dark Yellow (Yellow); Glucose Urine UA Negative (Negative); Hyaline Casts Urine Present /lpf; Ketones Urine Negative (Negative); Leukocyte Esterase Ur 3+ LEU/UL (Negative); Need Manual Microscopic Reviewed; Nitrate Urine Positive (Negative); Protein Urine Negative (Negative); RBC Urine 0-2 /hpf (0-2); Specific Grav Ur 1.013 (1.001-1.035); Squamous Epithelial Cell Urine None seen /hpf (Few); Urobilinogen Urine 0.2 mg/dL (<2.0); WBC Urine 51-100 /hpf
[2023-03-02 16:13] LABS: Add Urine Microscopic? YES
[2023-03-02] MEDS: SODIUM CHLORIDE 0.9% IV 1,000 ML 999 ML IV CONT ×2 (16:25→17:18)
[2023-03-02 17:54] LABS: Troponin I < 0.012 ng/mL (0.000-0.034)
--- NOTE | 2023-03-02 18:50 | PC.NURSE ---
Ambulatory to bathroom. Tolerated well. Offers no c/o.
[2023-03-02 20:47] LABS: Troponin I < 0.012 ng/mL (0.000-0.034)
== END 2023-03-02 21:11 | disposition home or self-care (01) ==
PROVIDERS: Emergency Medicine; Emergency Provider Emergency Medicine; PCP Family Medicine
DX: I48.91 Unspecified atrial fibrillation (principal); N39.0 Urinary tract infection, site not specified; E86.0 Dehydration; I12.9 Hypertensive chronic kidney disease with stage 1 through stage 4 chronic kidney disease, or unspecified chronic kidney disease; N18.30 Chronic kidney disease, stage 3 unspecified; E78.00 Pure hypercholesterolemia, unspecified; K21.9 Gastro-esophageal reflux disease without esophagitis; Z87.891 Personal history of nicotine dependence
CPT/HCPCS: 36415; 71046; 80053; 81001; 83690; 84484; 85025; 85610; 85730; 87077; 87086; 87186; 93005; 96361; 96365; 99284; J0696; J7030

== ENCOUNTER 2024-02-09 10:42 | Outpatient (CLI) | payer MEDICARE, SELFPAY ==
--- NOTE | ~2024-02-09 | XR_ITS ---
XR abdomen/kub 1V 02/09/2024 10:59 Indication: Renal stone Procedure: KUB Comparison: Comparison to multiple prior studies sequentially, with oldest reviewed study dated 03/05. Findings: There is a right renal stone measuring 12 mm. Bowel gas pattern nonobstructive. Moderate radha mbar spondylosis. No acute osseous abnormality. Impression: 1: Right nephrolithiasis. Reviewed, dictated and finalized at location B. Impression: 1: Right nephrolithiasis.
== END 2024-02-09 10:43 | disposition home or self-care (01) ==
PROVIDERS: PCP Family Medicine; Visit Provider Urology
DX: N20.0 Calculus of kidney (principal)
CPT/HCPCS: 74018